=== PATIENT | female | born 1950 | race American Indian/Alaskan Native ===

== ENCOUNTER 2017-09-27 15:10 | Emergency (ER) | payer MEDICARE ==
[2017-09-27] MEDS ORDERED: Sodium Chloride 0.9% 1,000 ML IV STA (16:04)
[2017-09-27 16:07] VITALS: BMI 36.0
--- NOTE | 2017-09-27 16:12 | ED PDOC ---
Arrival/HPI - General Time Seen by Provider: 09/27/17 15:52 Historian: Patient, Spouse - History of Present Illness Narrative History of Present Illness (Text): Patient is a 67 yo female with a PMH of hypertension, breast cancer s/p left mastectomy, and questionable GERD and dementia on Aricept, presents to the Emergency department with complaints of nausea, vomiting, and abdominal pain for about one hour. HPI is limited by memory impairment. Patient had a normal dinner last night and breakfast this morning without complaints. She did not eat lunch. There was a sudden onset of abdominal pain prior to 2 episodes of clear vomitus without food or blood. She did not take anything for her symptoms. Denies sick contacts and recent travel. Associated symptoms include dizziness and chills. Denies diarrhea, constipation, back pain, chest pain, shortness of breath, headache, blurry vision. Patient is noncompliant with her blood pressure medications. 09/27/17 16:12 Time/Duration: 1 hour Symptom Onset: Sudden Symptom Course: Unchanged Activities at Onset: Rest Past Medical History - Provider Review Nursing Documentation Reviewed: Yes - Infectious Disease Hx of Infectious Diseases: None - Tetanus Immunization Tetanus Immunization: Unknown - Cardiac Hx Hypertension: Yes - Pulmonary Hx Asthma: Yes Hx Pneumonia: Yes (when pt was in her 30's) - Hematological/Oncological Hx Cancer: Yes (left breast mastectomy 2 yrs ago) Hx Chemotherapy: Yes (finished 2011) - Musculoskeletal/Rheumatological Hx Falls: No - Psychiatric Hx Substance Use: No - Surgical History Hx Hysterectomy: Yes Hx Orthopedic Surgery: Yes (r ankle fx) - Suicidal Assessment Feels Threatened In Home Enviroment: No Family/Social History - Physician Review Nursing Documentation Reviewed: Yes Family/Social History: No Known Family HX Smoking Status: Never Smoked Hx Alcohol Use: No Hx Substance Use: No Hx Substance Use Treatment: No Allergies/Home Meds Allergies/Adverse Reactions: Allergies Penicillins Allergy (Verified 09/27/17 16:07) RASH Home Medications: Home Meds Medication Instructions Recorded Confirmed Donepezil [Aricept] 10 mg PO DAILY 09/27/17 09/27/17 Review of Systems - Physician Review All systems were reviewed & negative as marked: Yes - Review of Systems Systems not reviewed;Unavailable: Dementia Constitutional: Normal Eyes: absent: Vision Changes ENT: Normal Respiratory: absent: SOB, Cough Cardiovascular: absent: Chest Pain Gastrointestinal: Abdominal Pain, Nausea, Vomiting. absent: Constipation, Diarrhea Genitourinary Female: Normal Musculoskeletal: Normal Skin: Normal Neurological: Dizziness. absent: Headache Endocrine: Normal Hemo/Lymphatic: Normal Psychiatric: Normal Physical Exam Vital Signs Temp Pulse Resp BP Pulse Ox 09/27/17 21:12 98.9 F 63 18 155/80 H 100 09/27/17 19:53 58 L 18 174/100 H 100 09/27/17 18:28 54 L 18 183/95 H 100 09/27/17 16:09 98.5 F 60 20 176/94 H 99 Temperature: Afebrile Blood Pressure: Hypertensive Appearance: Positive for: Uncomfortable Pain Distress: Mild - Systems Exam Head: Present: Atraumatic, Normocephalic Pupils: Present: PERRL Extroacular Muscles: Present: EOMI Conjunctiva: Present: Normal Mouth: Present: Moist Mucous Membranes Neck: Present: Normal Range of Motion Respiratory/Chest: Present: Clear to Auscultation, Good Air Exchange. No: Respiratory Distress, Accessory Muscle Use Cardiovascular: Present: Regular Rate and Rhythm, Normal S1, S2. No: Murmurs Abdomen: Present: Normal Bowel Sounds, Other (periumbilical ttp> ruq ttp , hyperechoic bs ). No: Tenderness, Distention, Peritoneal Signs Genitourinary/Pelvic Exam: Present: Other (deferred) Back: Present: Normal Inspection Upper Extremity: Present: Normal Inspection. No: Cyanosis, Edema Lower Extremity: Present: Normal Inspection. No: Edema Neurological: Present: GCS=15, CN II-XII Intact, Speech Normal, Motor Func Grossly Intact, Normal Sensory Function, Normal Cerebellar Funct, Norm Deep Tendon Reflexes, Gait Normal, Normal 2Pt Descrimination Skin: Present: Warm, Dry, Normal Color. No: Rashes Psychiatric: Present: Alert, Oriented x 3, Normal Insight, Normal Concentration Medical Decision Making ED Course and Treatment: 67 year old woman p/w n/v/periumbilical discomfort at lunch. risk stratify w/ labs/ ct a/p po and iv contrast 09/27/17 19:39 09/27/17 19:[address] Campos at the end of my shift to f/u ct a/p. - Lab Interpretations Lab Results: 09/27/17 16:30 09/27/17 16:30 Lab Results 09/27/17 21:48: Urine Color Colorless, Urine Appearance Clear, Urine pH 6.5, Ur Specific [place] <= 1.005, Urine Protein Negative, Urine Glucose (UA) Negative, Urine Ketones 15 H, Urine Blood Negative, Urine Nitrate Negative, Urine Bilirubin Negative, Urine Urobilinogen 0.2, Ur Leukocyte Esterase Negative 09/27/17 16:30: Sodium 143, Potassium 3.3 L, Chloride 104, Carbon Dioxide 28, Anion Gap 15, BUN 9, Creatinine 0.8, Est GFR ( Amer) > 60, Est GFR (Non- Af Amer) > 60, Random Glucose 110, Calcium 10.0, Total Bilirubin 0.4, AST 27, ALT 26, Alkaline Phosphatase 89, Lactate Dehydrogenase 537, Total Creatine Kinase 248 H, CK-MB (CK-2) 2.4, CK-MB (CK-2) % Cancelled, Troponin I < 0.01, Total Protein 7.4, Albumin 4.1, Globulin 3.3, Albumin/Globulin Ratio 1.2, Amylase 54, Lipase 71 09/27/17 16:30: PT 11.8, INR 1.03, APTT 30.9 09/27/17 16:30: WBC 6.1, RBC 5.12, Hgb 14.1, Hct 41.9, MCV 81.8, MCH 27.5, MCHC 33.7, RDW 15.0 H, Plt Count 288, MPV 9.8, Gran % 69.1 H, Lymph % (Auto) 26.3, [place] % (Auto) 3.8, Eos % (Auto) 0.5 L, Baso % (Auto) 0.3, Gran # 4.18, Lymph # ( Auto) 1.6, [place] # (Auto) 0.2, Eos # (Auto) 0.0, Baso # (Auto) 0.02 - RAD Interpretation Radiology Orders: 09/27/17 15:58 ABD PELVIS PO & IV CONTRAST [CT] Stat ABD 2 VIEWS (FLAT/UP OR DECUB) [RAD] Stat 09/27/17 16:02 CHEST ONE VIEW [RAD] Stat - Medication Orders Current Medication Orders: Discontinued Medications Famotidine (Pepcid) 20 mg IVP STAT STA Stop: 09/27/17 15:59 Last Admin: 09/27/17 16:21 Dose: 20 mg IVP Administration Document 09/27/17 16:21 OCS (Rec: 09/27/17 16:21 [id number] Charges for Administration # of IVP Administrations 1 Sodium Chloride (Sodium Chloride 0.9%) 1,000 mls @ 999 mls/hr IV .Q1H1M STA Stop: 09/27/17 17:04 Last Admin: 09/27/17 16:20 Dose: 999 mls/hr eMAR Start Stop Document 09/27/17 16:20 OCS (Rec: 09/27/17 16:21 [id number] Intravenous Solution Start Date 09/27/17 Start Time 16:21 End Date 09/27/17 End time 17:22 Total Infusion Time 61 Ondansetron HCl (Zofran Inj) 4 mg IVP STAT STA Stop: 09/27/17 15:59 Last Admin: 09/27/17 16:21 Dose: 4 mg IVP Administration Document 09/27/17 16:21 OCS (Rec: 09/27/17 16:21 [id number] Charges for Administration # of IVP Administrations 1 Disposition/Present on Arrival - Present on Arrival Any Indicators Present on Arrival: No History of DVT/PE: No History of Uncontrolled Diabetes: No Urinary Catheter: No History of Decub. Ulcer: No History Surgical Site Infection Following: None - Disposition Have Diagnosis and Disposition been Completed?: Yes Diagnosis: Abdominal pain, Vomiting Disposition: HOME/ ROUTINE Disposition Time: 00:15 Patient Plan: Discharge Condition: GOOD Discharge Instructions (ExitCare): Acute Abdomen (Belly Pain), Adult (DC), Nausea and Vomiting, Adult Prescriptions: Ondansetron [Zofran Odt] 8 mg PO TID PRN #10 odt PRN Reason: Nausea/Vomiting Referrals: Alison Garcia MD [Primary Care Provider] - Follow up with primary Forms: [employer] (Indonesian)
[2017-09-27] MEDS ORDERED: Iohexol 240 (50 ml) ONE (16:25)
[2017-09-27 16:41] LABS: BASO # 0.02 K/mm3 (0.0-2.0); BASO % 0.3 % (0.0-3.0); EOS % 0.5 % (1.5-5.0); GRAN # 4.18 (1.4-6.5); GRAN % 69.1 % (50.0-68.0); HEMOGLOBIN 14.1 g/dL (12.0-16.0); LYMPH # 1.6 (1.2-3.4); LYMPH % 26.3 % (22.0-35.0); MEAN CELL VOLUME 81.8 fl (80.0-105.0); MEAN CORPUSCULAR HEMOGLOBIN 27.5 pg (25.0-35.0); MEAN CORPUSCULAR HGB CONC 33.7 g/dl (31.0-37.0); MEAN PLATELET VOLUME 9.8 fl (7.0-11.0); MONO # 0.2 (0.1-0.6); MONO % 3.8 % (1.0-6.0); RBC 5.12 10^6/uL (3.5-6.1); WHITE BLOOD COUNT 6.1 10^3/ul (4.5-11.0)
[2017-09-27 16:48] LABS: INR 1.03 (0.93-1.08); PARTIAL THROMBOPLASTIN TIME 30.9 Seconds (25.1-36.5); PROTHROMBIN TIME 11.8 SECONDS (9.4-12.5)
[2017-09-27 16:53] LABS: ALB/GLOB RATIO 1.2 (1.1-1.8); ALBUMIN 4.1 g/dL (3.0-4.8); ALT/SGPT 26 U/L (7-56); AMYLASE 54 U/L (35-125); AST/SGOT 27 U/L (14-36); BLOOD UREA NITROGEN 9 mg/dL (7-21); GFR AFRICAN-AMERICAN > 60; GFR NON-AFRICAN AMERICAN > 60; LIPASE 71 U/L (23-300)
[2017-09-27 17:04] LABS: TROPONIN I < 0.01 ng/mL
[2017-09-27 17:10] LABS: CK-MB 2.4 ng/mL (0.0-3.6)
[2017-09-27] MEDS ORDERED: Iohexol 350 MG/100 ML VIAL ONE (18:24)
[2017-09-27 18:31] VITALS: RESP 18; O2SAT 100
--- NOTE | 2017-09-27 19:21 | CT ---
EXAM: CT Abdomen and Pelvis With Intravenous Contrast CLINICAL HISTORY: 67 years old, female; Pain; Abdominal pain; Acute; Additional info: Peiumbilical pain TECHNIQUE: Axial computed tomography images of the abdomen and pelvis with intravenous contrast. All CT scans at this facility use one or more dose reduction techniques, viz.: automated exposure control; ma/kV adjustment per patient size (including targeted exams where dose is matched to indication; i.e. head); or iterative reconstruction technique. Coronal and sagittal reformatted images were created and reviewed. CONTRAST: 100 mL of omni 350 administered intravenously. COMPARISON: No relevant prior studies available. FINDINGS: Lung bases: Unremarkable. No mass. No consolidation. Heart: Mild cardiomegaly. ABDOMEN: Liver: Unremarkable. No mass. Gallbladder and bile ducts: Unremarkable. No calcified stones. No ductal dilation. Pancreas: Unremarkable. No mass. No ductal dilation. Spleen: Unremarkable. No splenomegaly. Adrenals: Unremarkable. No mass. Kidneys and ureters: Unremarkable. No solid mass. No hydronephrosis. Stomach and bowel: Unremarkable. No obstruction. Appendix: No findings to suggest acute appendicitis. PELVIS: Bladder: Unremarkable. No mass. Reproductive: Hysterectomy. ABDOMEN and PELVIS: Intraperitoneal space: Unremarkable. No free air. No significant fluid collection. Bones/joints: Lumbar spinal degenerative changes. No acute fracture. No dislocation. Soft tissues: Unremarkable. Vasculature: Atherosclerotic vascular disease. No abdominal aortic aneurysm. Lymph nodes: Unremarkable. No enlarged lymph nodes. IMPRESSION: 1. No evidence of bowel obstruction. 2. No findings to suggest acute appendicitis. 3. Remainder of findings as above.
--- NOTE | 2017-09-27 21:13 | ED PDOC ---
Physical Exam Vital Signs Temp Pulse Resp BP Pulse Ox 09/27/17 21:12 98.9 F 63 18 155/80 H 100 09/27/17 19:53 58 L 18 174/100 H 100 09/27/17 18:28 54 L 18 183/95 H 100 09/27/17 16:09 98.5 F 60 20 176/94 H 99 Medical Decision Making ED Course and Treatment: 09/27/17 19:00 Case endorsed to me by Dr. Reyes, pending CT Abdomen and Pelvis, re-assessment, and disposition. 09/27/17 19:25 CT Abdomen and Pelvis shows: Lung bases: Unremarkable. No mass. No consolidation. Heart: Mild cardiomegaly. ABDOMEN: Liver: Unremarkable. No mass. Gallbladder and bile ducts: Unremarkable. No calcified stones. No ductal dilation. Pancreas: Unremarkable. No mass. No ductal dilation. Spleen: Unremarkable. No splenomegaly. Adrenals: Unremarkable. No mass. Kidneys and ureters: Unremarkable. No solid mass. No hydronephrosis. Stomach and bowel: Unremarkable. No obstruction. Appendix: No findings to suggest acute appendicitis. PELVIS: Bladder: Unremarkable. No mass. Reproductive: Hysterectomy. ABDOMEN and PELVIS: Intraperitoneal space: Unremarkable. No free air. No significant fluid collection. Bones/joints: Lumbar spinal degenerative changes. No acute fracture. No dislocation. Soft tissues: Unremarkable. Vasculature: Atherosclerotic vascular disease. No abdominal aortic aneurysm. Lymph nodes: Unremarkable. No enlarged lymph nodes. IMPRESSION: 1. No evidence of bowel obstruction. 2. No findings to suggest acute appendicitis. 3. Remainder of findings as above. 09/27/17 22:15 On re-evaluation, patient feels better and is in no acute distress. I have discussed the results and plan with the patient, who expresses understanding. Patient in agreement with plan to be discharged home. Patient is stable for discharge. Patient was instructed to follow up with physician or return if symptoms worsen or new concerning symptoms arise. - Lab Interpretations Lab Results: 09/27/17 16:30 09/27/17 16:30 Lab Results 09/27/17 21:48: Urine Color Colorless, Urine Appearance Clear, Urine pH 6.5, Ur Specific [place] <= 1.005, Urine Protein Negative, Urine Glucose (UA) Negative, Urine Ketones 15 H, Urine Blood Negative, Urine Nitrate Negative, Urine Bilirubin Negative, Urine Urobilinogen 0.2, Ur Leukocyte Esterase Negative 09/27/17 16:30: Sodium 143, Potassium 3.3 L, Chloride 104, Carbon Dioxide 28, Anion Gap 15, BUN 9, Creatinine 0.8, Est GFR ( Amer) > 60, Est GFR (Non- Af Amer) > 60, Random Glucose 110, Calcium 10.0, Total Bilirubin 0.4, AST 27, ALT 26, Alkaline Phosphatase 89, Lactate Dehydrogenase 537, Total Creatine Kinase 248 H, CK-MB (CK-2) 2.4, CK-MB (CK-2) % Cancelled, Troponin I < 0.01, Total Protein 7.4, Albumin 4.1, Globulin 3.3, Albumin/Globulin Ratio 1.2, Amylase 54, Lipase 71 09/27/17 16:30: PT 11.8, INR 1.03, APTT 30.9 09/27/17 16:30: WBC 6.1, RBC 5.12, Hgb 14.1, Hct 41.9, MCV 81.8, MCH 27.5, MCHC 33.7, RDW 15.0 H, Plt Count 288, MPV 9.8, Gran % 69.1 H, Lymph % (Auto) 26.3, [place] % (Auto) 3.8, Eos % (Auto) 0.5 L, Baso % (Auto) 0.3, Gran # 4.18, Lymph # ( Auto) 1.6, [place] # (Auto) 0.2, Eos # (Auto) 0.0, Baso # (Auto) 0.02 - RAD Interpretation Radiology Orders: 09/27/17 15:58 ABD PELVIS PO & IV CONTRAST [CT] Stat ABD 2 VIEWS (FLAT/UP OR DECUB) [RAD] Stat 09/27/17 16:02 CHEST ONE VIEW [RAD] Stat Development Scientist: Radiologist - Medication Orders Current Medication Orders: Discontinued Medications Famotidine (Pepcid) 20 mg IVP STAT STA Stop: 09/27/17 15:59 Last Admin: 09/27/17 16:21 Dose: 20 mg IVP Administration Document 09/27/17 16:21 OCS (Rec: 09/27/17 16:21 [facility]CS [id number]) Charges for Administration # of IVP Administrations 1 Sodium Chloride (Sodium Chloride 0.9%) 1,000 mls @ 999 mls/hr IV .Q1H1M STA Stop: 09/27/17 17:04 Last Admin: 09/27/17 16:20 Dose: 999 mls/hr eMAR Start Stop Document 09/27/17 16:20 OCS (Rec: 09/27/17 16:21 [facility] [id number]) Intravenous Solution Start Date 09/27/17 Start Time 16:21 End Date 09/27/17 End time 17:22 Total Infusion Time 61 Ondansetron HCl (Zofran Inj) 4 mg IVP STAT STA Stop: 09/27/17 15:59 Last Admin: 09/27/17 16:21 Dose: 4 mg IVP Administration Document 09/27/17 16:21 OCS (Rec: 09/27/17 16:21 [facility] [id number]) Charges for Administration # of IVP Administrations 1 Disposition/Present on Arrival - Present on Arrival Any Indicators Present on Arrival: No History of DVT/PE: No History of Uncontrolled Diabetes: No Urinary Catheter: No History of Decub. Ulcer: No History Surgical Site Infection Following: None - Disposition Have Diagnosis and Disposition been Completed?: Yes Diagnosis: Abdominal pain, Vomiting Disposition: HOME/ ROUTINE Disposition Time: 22:15 Condition: GOOD Discharge Instructions (ExitCare): Acute Abdomen (Belly Pain), Adult (DC), Nausea and Vomiting, Adult Prescriptions: Ondansetron [Zofran Odt] 8 mg PO TID PRN #10 odt PRN Reason: Nausea/Vomiting Referrals: Alison Garcia MD [Primary Care Provider] - Follow up with primary Forms: [employer] (Romanian)
[2017-09-27 21:16] VITALS: BP 155/80; PULSE 63; TEMP 98.9
[2017-09-27 21:52] LABS: PH,URINE 6.5 (4.7-8.0); URINE BILIRUBIN NEGATIVE (NEGATIVE); URINE BLOOD NEGATIVE (NEGATIVE); URINE GLUCOSE (UA) NEGATIVE (NEGATIVE); URINE LEUKOCYTE ESTERASE NEGATIVE Leu/uL (NEGATIVE); URINE PROTEIN NEGATIVE mg/dL (<30 mg/dL); URINE UROBILINOGEN 0.2 E.U./dL (<1 E.U./dL)
[2017-09-27 21:53] LABS: URINE APPEARANCE CLEAR (CLEAR); URINE COLOR COLORLESS (YELLOW)
--- NOTE | 2017-09-28 07:31 | CARD ---
APPROVED REPORT EKG Measurement Heart [id number] 152P30 [id number] <Conclusion> Sinus bradycardia PRWP Nonspecific T wave abnormality
--- NOTE | 2017-09-28 09:07 | RAD ---
PROCEDURE: CHEST RADIOGRAPH, 1 VIEW HISTORY: r/o subdiaphragmatic free air COMPARISON: 01/08/2013 FINDINGS: LUNGS: Clear. PLEURA: No pneumothorax or pleural fluid seen. CARDIOVASCULAR: Normal. OSSEOUS STRUCTURES: No significant abnormalities. VISUALIZED UPPER ABDOMEN: Normal. OTHER FINDINGS: None. IMPRESSION: No active disease.
--- NOTE | 2017-09-28 09:11 | RAD ---
HISTORY: r/o obstruction COMPARISON: September 27, 2017. CT abdomen and pelvis September 26, 2017. CT abdomen and pelvis FINDINGS: BOWEL: Normal. No obstruction. No free air. BONES: Normal. OTHER FINDINGS: None. IMPRESSION: No significant or acute findings to account for/ related to the clinical presentation.
== END 2017-09-27 22:15 | disposition home or self-care (01) ==
LOC: ED 15:10
DX: R10.9 Unspecified abdominal pain (principal); R11.10 Vomiting, unspecified; I10 Essential (primary) hypertension; K21.9 Gastro-esophageal reflux disease without esophagitis
CPT/HCPCS: 71045; 74019; 74177; 80053; 81003; 82150; 82550; 82553; 83615; 83690; 84484; 85025; 85610; 85730; 93005; 96361; 96374; 96375; 99284; J2405; J7040; Q9966; Q9967

== ENCOUNTER 2018-06-11 20:15 | Inpatient (IN) | payer MEDICARE ==
[2018-06-11 20:16] VITALS: BMI 36.0
--- NOTE | 2018-06-11 20:49 | ED PDOC ---
Arrival/HPI - General Time Seen by Provider: 06/11/18 20:28 Historian: Patient, Family (Daughter) - History of Present Illness Narrative History of Present Illness (Text): 06/11/18 20:39 A 68 year old female, whose past medical history includes Hypertension, CHF, breast CA, vertigo, and gout, is brought into the emergency department by daughter for a complaint of 3 day duration altered mental status and bilateral leg swelling. Patient's daughter notes that the patient has been refusing to take her medications and the swelling has been increasing over the past 3 days. The daughter states that on the first day of swelling, the patient's PMD was co ntacted, and were instructed to double the furosemide the patient takes for the leg swelling. The patient denies any pain. The patient denies any fever, chills, chest pain, shortness of breath, abdominal pain, nausea, vomiting, diarrhea, urinary symptoms, back pain, neck pain, headache, dizziness, or any other complaints. PMD: Dr. Renteria Neurologist: Dr. Gary Time/Duration: Other (3 days) Symptom Onset: Sudden Symptom Course: Unchanged Activities at Onset: Rest, Light Context: Home Past Medical History - Provider Review Nursing Documentation Reviewed: Yes - Infectious Disease Hx of Infectious Diseases: None - Tetanus Immunization Tetanus Immunization: Unknown - Cardiac Hx Hypertension: Yes - Pulmonary Hx Asthma: Yes Hx Pneumonia: Yes (when pt was in her 30's) - Neurological Hx Neurological Disorder: No - HEENT Hx HEENT Disorder: No - Renal Hx Renal Disorder: No - Endocrine/Metabolic Hx Endocrine Disorders: No - Hematological/Oncological Hx Cancer: Yes (left breast mastectomy 2 yrs ago) Hx Chemotherapy: Yes (finished 2011) - Integumentary Hx Dermatological Disorder: No - Musculoskeletal/Rheumatological Hx Falls: No - Gastrointestinal Hx Gastrointestinal Disorders: No - Genitourinary/Gynecological Hx Genitourinary Disorders: No - Psychiatric Hx Substance Use: No - Surgical History Hx Hysterectomy: Yes Hx Orthopedic Surgery: Yes (r ankle fx) - Anesthesia Hx Anesthesia: No - Suicidal Assessment Feels Threatened In Home Enviroment: No Family/Social History - Physician Review Nursing Documentation Reviewed: Yes Family/Social History: No Known Family HX Smoking Status: Never Smoked Hx Alcohol Use: No Hx Substance Use: No Hx Substance Use Treatment: No Allergies/Home Meds Allergies/Adverse Reactions: Allergies Penicillins Allergy (Verified 09/27/17 16:07) RASH Home Medications: Home Meds Medication Instructions Recorded Confirmed Donepezil [Aricept] 10 mg PO DAILY 09/27/17 09/27/17 Review of Systems - Physician Review All systems were reviewed & negative as marked: Yes - Review of Systems Constitutional: absent: Fevers Respiratory: absent: SOB, Cough Cardiovascular: absent: Chest Pain Gastrointestinal: absent: Abdominal Pain, Diarrhea, Nausea, Vomiting Genitourinary Female: absent: Urine Output Changes Musculoskeletal: absent: Back Pain, Neck Pain Neurological: absent: Headache, Dizziness Physical Exam Vital Signs Reviewed: Yes Temperature: Afebrile Blood Pressure: Hypotensive Pulse: Regular Respiratory Rate: Normal Appearance: Positive for: Well-Appearing, Non-Toxic, Comfortable Pain Distress: None Mental Status: No: Alert and Oriented X 3 (A and Ox2) - Systems Exam Head: Present: Atraumatic, Normocephalic Pupils: Present: PERRL Extroacular Muscles: Present: EOMI Conjunctiva: Present: Normal Mouth: Present: Moist Mucous Membranes Neck: Present: Normal Range of Motion Respiratory/Chest: Present: Clear to Auscultation, Good Air Exchange. No: Respiratory Distress, Accessory Muscle Use Cardiovascular: Present: Regular Rate and Rhythm, Normal S1, S2. No: Murmurs Abdomen: No: Tenderness, Distention, Peritoneal Signs Back: Present: Normal Inspection Upper Extremity: Present: Normal Inspection. No: Cyanosis, Edema Lower Extremity: Present: Edema (Bilateral 2+ edema) Neurological: Present: GCS=15, CN II-XII Intact, Speech Normal Skin: Present: Warm, Dry, Normal Color. No: Rashes Psychiatric: Present: Alert, Normal Insight, Normal Concentration. No: Oriented x 3 (Oriented x2 ) Medical Decision Making ED Course and Treatment: 06/11/18 20:49 Impression: A 68 year old female is brought into the emergency department by daughter for a complaint of 3 day duration AMS and bilateral foot swelling. On exam pt is Alert and oriented, without any unilateral weakness, slurred speech or any other FND. No cerebellar signs. No meningeal signs. Lungs CTA b/l. B/L LE edema. Likely CHF exacerbation vs UTI vs PNA. Plan: -- Head CT -- Bilateral Lower Extremity Ultrasound -- EKG -- CXR -- Labs -- Reassess and disposition Prior Visits: Notes and results from previous visits were reviewed. Progress Notes: EKG: Ordered, reviewed, and independently interpreted the EKG. Rate : 84 BPM Rhythm : NSR Interpretation : PVC. No STEMI 06/11/18 21:42: Bedside pulses as well as good pulses and good tone by both resident and I. Arterial duplex cancelled. No notable change in color. Color change noted by family and is chronic. 06/11/18 23:05: [place] [address]. Lasix ordered. Will replete potassium. HEAD CT IMPRESSION: 1. Age-appropriate cerebellar and cerebral atrophy. 2. Mild chronic microvascular disease. 3. No evidence of acute intracranial pathology. Electronically signed on Jun 12, 2018 12:22:47 AM EST by: Isidro Logan M.D., Certified by ADELITA, MSK, Neuroradiology 06/12/18 1963 Negative doppler appreciate consult w/ Dr. Lira covering for Dr. Renteria: to admit to Dr. Urena service. I endorsed additional pending studies including xr pt in NAD, agreeable to plan. 0133 UA unremarkable - Lab Interpretations I have reviewed the lab results: Yes - EKG Interpretation Interpreted by ED Physician: Yes Type: 12 lead EKG - Scribe Statement The provider has reviewed the documentation as recorded by the Scribe Dona Hendricks Provider Scribe Attestation: All medical record entries made by the Scribe were at my direction and personally dictated by me. I have reviewed the chart and agree that the record accurately reflects my personal performance of the history, physical exam, medical decision making, and the department course for this patient. I have also personally directed, reviewed, and agree with the discharge instructions and disposition. Disposition/Present on Arrival - Present on Arrival Any Indicators Present on Arrival: No History of DVT/PE: No History of Uncontrolled Diabetes: No Urinary Catheter: No History Surgical Site Infection Following: None - Disposition Have Diagnosis and Disposition been Completed?: Yes Diagnosis: CHF (congestive heart failure) Disposition Time: 23:19 Condition: GOOD
[2018-06-11 21:48] LABS: VENOUS BLOOD GAS PO2 57 mm/Hg (30-55); VENOUS BLOOD PH 7.38 (7.32-7.43)
[2018-06-11 21:52] LABS: BASO # 0.03 K/mm3 (0.0-2.0); BASO % 0.5 % (0.0-3.0); EOS # 0.2 (0.0-0.7); EOS % 2.5 % (1.5-5.0); GRAN # 3.7 (1.4-6.5); GRAN % 60.8 % (50.0-68.0); HEMOGLOBIN 12.8 g/dL (12.0-16.0); LYMPH # 1.9 (1.2-3.4); LYMPH % 31.9 % (22.0-35.0); MEAN CELL VOLUME 82.5 fl (80.0-105.0); MEAN CORPUSCULAR HEMOGLOBIN 27.1 pg (25.0-35.0); MEAN CORPUSCULAR HGB CONC 32.8 g/dl (31.0-37.0); MEAN PLATELET VOLUME 10.8 fl (7.0-11.0); MONO # 0.3 (0.1-0.6); MONO % 4.3 % (1.0-6.0); RBC 4.73 10^6/uL (3.5-6.1); RED CELL DISTRIBUTION WIDTH 19.1 % (11.5-14.5); WHITE BLOOD COUNT 6.1 10^3/uL (4.5-11.0)
[2018-06-11 21:55] LABS: ALT/SGPT 14 U/L (7-56); AST/SGOT 22 U/L (14-36); BLOOD UREA NITROGEN 14 mg/dL (7-21); CALCIUM 9.3 mg/dL (8.4-10.5); GFR NON-AFRICAN AMERICAN > 60
[2018-06-11 22:07] LABS: B-TYPE NATRIURETIC PEPTIDE 16100 pg/mL (0-450); TROPONIN I 0.01 ng/mL
[2018-06-11] MEDS ORDERED: Potassium Chloride 40 mEq/30 ml LIQ UD PO STA (23:04)
[2018-06-12 00:37] LABS: URINE BILIRUBIN NEGATIVE (NEGATIVE); URINE BLOOD NEGATIVE (NEGATIVE); URINE GLUCOSE (UA) NEGATIVE (NEGATIVE); URINE LEUKOCYTE ESTERASE SMALL Leu/uL (NEGATIVE); URINE PROTEIN TRACE mg/dL (<30 mg/dL)
[2018-06-12 00:38] LABS: URINE APPEARANCE SL CLOUDY (CLEAR); URINE COLOR YELLOW (YELLOW)
[2018-06-12 01:00] LABS: URINE RBC 0 - 2 /hpf (0-2)
[2018-06-12 01:01] LABS: URINE BACTERIA RARE /hpf
[2018-06-12 01:41] LABS: VENOUS BLOOD GAS BASE EXCESS 3.6 mmol/L (0.0-2.0); VENOUS BLOOD GAS PO2 44 mm/Hg (30-55); VENOUS BLOOD PH 7.37 (7.32-7.43)
--- NOTE | 2018-06-12 08:58 | RAD ---
Date of service: 06/12/2018 HISTORY: BNP 16k COMPARISON: 09/27/2017 FINDINGS: LUNGS: No active pulmonary disease. PLEURA: No significant pleural effusion identified, no pneumothorax apparent. CARDIOVASCULAR: No aortic atherosclerotic calcification present. Mild cardiomegaly no pulmonary vascular congestion. OSSEOUS STRUCTURES: No significant abnormalities. VISUALIZED UPPER ABDOMEN: Normal. OTHER FINDINGS: None. IMPRESSION: No active disease.
--- NOTE | 2018-06-12 09:09 | CT ---
Date of service: 06/11/2018 PROCEDURE: CT HEAD WITHOUT CONTRAST. HISTORY: ams COMPARISON: None available. TECHNIQUE: Axial computed tomography images were obtained through the head/brain without intravenous contrast. Radiation dose: Total exam DLP = 1004.52 mGy-cm. This CT exam was performed using one or more of the following dose reduction techniques: Automated exposure control, adjustment of the mA and/or kV according to patient size, and/or use of iterative reconstruction technique. FINDINGS: HEMORRHAGE: No intracranial hemorrhage. BRAIN: No mass effect or edema. Mild atrophy and chronic microvascular ischemic changes. VENTRICLES: Unremarkable. No hydrocephalus. CALVARIUM: Unremarkable. PARANASAL SINUSES: Unremarkable as visualized. No significant inflammatory changes. MASTOID AIR CELLS: Unremarkable as visualized. No inflammatory changes. OTHER FINDINGS: None. IMPRESSION: No intracranial hemorrhage.
--- NOTE | 2018-06-12 09:24 | CARD ---
APPROVED REPORT Date of service: 06/11/2018 EKG Measurement Heart [id number] HI 140P54 [id number] <Conclusion> Sinus rhythm with premature atrial complexes with aberrant conduction Possible Left atrial enlargement Left anterior fascicular block Anteroseptal infarct, not seen on ECG 09/27/17 NSSTW changes
--- NOTE | 2018-06-12 14:37 | CP.PCM.PCO ---
Physician Communication Note - Physician Communication Note Physician Communication Note: CTA neck/head as per neuro/MRI, PT eval pending
--- NOTE | 2018-06-12 14:40 | CP.PCM.PCO ---
Physician Communication Note - Physician Communication Note Physician Communication Note: PT eval pending
--- NOTE | 2018-06-12 14:57 | CON ---
NEUROLOGY CONSULTATION DATE: 06/12/2018 CHIEF COMPLAINT: Confusion. HISTORY OF PRESENT ILLNESS: This is a 68-year-old woman with history of hypertension, CHF, breast cancer, vertigo, gout, who was brought in to by her daughter for complaints of 3-day duration of confusion and bilateral leg swelling. Th patient's daughter has noticed that the patient has been refusing to take her medications, swelling has increased for the past 3 days. She was on furosemide for swelling. Currently, she is confused. She thinks people are out there seeing her. She is in a delirious state. She mentions that her house is outside this door. No focal weakness and she has bilateral lower extremity swelling. She is on Aricept for underlying cognitive impairment. She is mildly delirious. She had most likely had behavioral disturbance, we will recommend psychiatric evaluation. PAST MEDICAL HISTORY: History of breast cancer status post left breast mastectomy two years ago, status post chemotherapy finished in 2011, hypertension, cognitive impairment and vertigo. FAMILY HISTORY: Noncontributory. REVIEW OF SYSTEMS: A 14-point review of systems is negative except as per the HPI. ALLERGIES: PENICILLIN. MEDICATIONS: Reviewed by nurse reconciliation sheet. LABORATORY DATA: BNP is 16,100. Sodium is 144, potassium 3.1, chloride 107, carbon dioxide 29, BUN of 14, creatinine 0.7 and glucose of 185. PHYSICAL EXAMINATION: VITAL SIGNS: Temperature of 98.1, pulse rate of 74, blood pressure 108/75, respiratory rate of 20 and oxygen saturation 99% on room air. GENERAL: The patient is sitting up in bed, in no acute distress. HEENT: Atraumatic and normocephalic. PERRLA. Extraocular muscles intact. NECK: Supple. No JVD. No adenopathy noted. LUNGS: Clear to auscultation. No adventitious sounds. HEART: S1 and S2. Normal rate and rhythm. No murmurs, rubs or gallops. ABDOMEN: Soft, nontender and nondistended. Bowel sounds are present. EXTREMITIES: No clubbing. No cyanosis. Peripheral pulses 2+ felt bilaterally. Has 1+ pitting edema to lower extremities. NEUROLOGIC: The patient is alert and oriented to person, not much to month, place or year. Recall time is 0/3. Poor attention span. Tangential thought process, confused . Speech is fluent without any errors. Cranial nerves II through XII are intact. Motor: Moves all extremities equally. Toes downgoing bilaterally. Sensory: Decreased light touch and pinprick up to the calves bilaterally. Decreased vibration of the toes. DTRs are 2+ throughout and 1 at both knees and ankles. Coordination: [id number] is intact. No dysmetria noted. Gait is deferred for now. IMPRESSION: This is a 68-year-old woman with history of breast cancer, status post left mastectomy two years ago, status post chemotherapy finished in 2011, hypertension, congestive heart failure, vertigo, gout, who came in for three days of confusion, bilateral leg swelling, has not been on furosemide for past few days, she did not take her medications, as is confused in terms of mild hallucinating. She definitely has cognitive impairment with mild behavioral disturbance and she is in the state of delirium. RECOMMENDATIONS: We would recommend; 1. Thiamine 100 mg p.o. daily. 2. Psychiatric evaluation and could consider Seroquel 25 mg p.o. at bedtime by Psychiatry. 3. CAT scan of head is negative, therefore no further neuro imaging required since there is no evidence of any mets. 4. throughout the day, avoid nighttime interruptions and delirium precautions. Thank you for this consult. Tony Gary MD
[2018-06-12 15:41] LABS: BLOOD UREA NITROGEN 16 mg/dL (7-21); CALCIUM 8.7 mg/dL (8.4-10.5); GFR NON-AFRICAN AMERICAN > 60; URIC ACID 8.7 mg/dL (2.5-6.2)
--- NOTE | 2018-06-12 16:11 | US ---
PROCEDURE: Bilateral carotid artery duplex ultrasound HISTORY: Carotid stenosis PHYSICIAN(S): Van Anthony MD. TECHNIQUE: Duplex sonography and color-flow Doppler were used to evaluate the carotid bifurcations and limited segments of the vertebral arteries bilaterally. FINDINGS: There is mild smooth heterogeneous plaque noted at the carotid bifurcations bilaterally. The peak systolic velocity in the proximal right internal carotid artery is 63 cm/sec. This corresponds to a 20 to 39% proximal right ICA stenosis. Normal systolic velocities are noted in the proximal right external carotid artery. There is antegrade flow in the right vertebral artery. The peak systolic velocity in the proximal left internal carotid artery is 54 cm/sec. This corresponds to a 20 to 39% proximal left ICA stenosis. Normal systolic velocities are noted in the proximal left external carotid artery. There is antegrade flow in the left vertebral artery. IMPRESSION: 1. Bilateral 20-39% proximal ICA stenoses. 2. Antegrade flow in both vertebral arteries.
--- NOTE | 2018-06-12 16:21 | US ---
HISTORY: Leg pain and swelling. Evaluate for DVT PHYSICIAN(S): Van Anthony MD. TECHNIQUE: Duplex sonography and color-flow Doppler with graded compression were used to evaluate the deep venous systems of both lower extremities. FINDINGS: The visualized deep venous systems of both lower extremities are sonographically normal and compressible. Normal wave forms and augmentation are seen. There is no sonographic evidence for deep venous thrombosis in the visualized segments of both lower extremities. IMPRESSION: No sonographic evidence for deep venous thrombosis in the visualized segments of both lower extremities.
--- NOTE | 2018-06-12 21:53 | CON ---
DATE: 06/12/2018 CARDIOLOGY CONSULTATION REASON FOR CONSULTATION: Cardiac evaluation, ruled out congestive heart failure, leg swelling. BRIEF CLINICAL HISTORY: A 68-year-old female with a past medical history significant for hypertension, congestive heart failure, breast CA, vertigo and gout, documented coronary artery disease came in with complaints of progressive worsening leg swelling. Denies any chest pain. Denies any shortness of breath. Denies any palpitation. PAST MEDICAL HISTORY: Significant for hypertension, obesity, asthma, breast CA and asthma since childhood. SOCIAL HISTORY: Denies any history of smoking. Quit many years ago. PAST SURGICAL HISTORY: Significant for mastectomy. ALLERGIES: TO PENICILLIN. CURRENT MEDICATIONS: The patient is taking at home lisinopril 10 mg daily and Aricept 10 mg daily. REVIEW OF SYSTEMS: As per HPI. PHYSICAL EXAMINATION: VITAL SIGNS: Temperature afebrile. Heart rate 74, blood pressure 108/75. HEENT: PERRLA intact. NECK: Supple. No carotid bruit or thyromegaly. CHEST: Clear to auscultation. HEART: S1, S2 regular. ABDOMEN: Soft. EXTREMITIES: Clubbing and cyanosis negative. LABORATORY DATA: WBC , hemoglobin 12.8, hematocrit 39, and platelet count 272. Chemistries show sodium of 144, potassium 3.4, chloride 107, carbon dioxide 29, anion gap 14, BUN 12, and creatinine 0.7 as of yesterday. Recent cardiac workup as well the patient's last echo done on 01/09/2013, [address] [facility], read by Dr. Thapa,that shows ejection fraction of 60% to 65%. No AR. No . No significant mitral regurgitation or mitral stenosis noted. A trace tricuspid regurgitation noted. RV systolic pressure not calculated because of the trace TR. Ejection fraction reported 60% to 65%. IMPRESSION: A 68-year-old female with past medical history significant for hypertension admitted with leg swelling and shortness of breath, history of hypertension, history of breast CA. Recommended to get echo to assess LV function. Continue gentle diuretics. Supplement potassium. We will followup. Get the lipid profile, TSH, hemoglobin A1c. Further recommendation depends on hospital course. We will follow with you. Thank you Dr. Renteria in providing this opportunity in taking care of patient, Triny Pryor. Hudson Campbell MD [facility] # [id number]
--- NOTE | 2018-06-12 21:59 | HP ---
DATE OF EXAM: 06/12/2018 HISTORY OF PRESENT ILLNESS: The patient is a 68-year-old black female sitting in chair, very apprehensive and anxious, was brought to emergency room by daughter because of increasing confusion, as a baseline she is confused, but lately she has been increasingly confused. Denies any nausea or vomiting. As per family, she has not been taking her medications. No history of hemoptysis. No hematemesis. PAST MEDICAL HISTORY: Significant for hypertension and dementia. ALLERGIES: SHE IS ALLERGIC TO PENICILLIN. MEDICATIONS: At home; she is on lisinopril 10 mg daily and Aricept 10 mg daily. SOCIAL HISTORY: No history of smoking, drinking, or alcohol abuse. She lives with her daughter and grand kid. PHYSICAL EXAMINATION: GENERAL: She is awake and alert, but confused and disoriented. VITAL SIGNS: She is afebrile, pulse 74, respirations 20, and blood pressure 108/75. LUNGS: Bilateral fair airflow. No rhonchi or crackles. HEART: S1 and S2 audible. ABDOMEN: Soft and nontender. No rebound. No guarding. NEUROLOGIC: The patient is awake, alert, but confused and disoriented. LABORATORY DATA: WBC is 6.1, hemoglobin 12, hematocrit 39 and platelets 272. Chemistry; sodium 144, potassium 3.1, chloride 107, CO2 of 29, BUN 14, and creatinine 0.6. Blood sugar of 185. BNP 16,100. CT scan of the head is negative. Bilateral leg Doppler is pending. ASSESSMENT AND PLAN: Increased confusion. I ordered for carotid Doppler, I ordered for neuro evaluation and psychiatric consult by Dr. Lopez for adjustment disorder. Follow vitamin B12. Followup her electrolyte in a.m. and followup the patient in a.m. Dirk Renteria MD
[2018-06-13] MEDS ORDERED: Potassium Chloride 20 mEq ER Tab PO ONE (09:42)
--- NOTE | 2018-06-13 10:11 | CARD ---
APPROVED REPORT Date of service: 06/12/2018 EXAM: Two-dimensional and M-mode echocardiogram with Doppler and color Doppler. INDICATION Cardiomyopathy CHF 2D DIMENSIONS IVSd1.2 (0.7-1.1cm)LVDd4.5 (3.9-5.9cm) LVOT Diameter2.2 (1.8-2.4cm)PWd1.2 (0.7-1.1cm) LVDs4.1 (2.5-4.0cm)FS (%) 9.7 % LVEF (%)21.4 (>50%) M-Mode DIMENSIONS Left Atrium (MM)3.80 (2.5-4.0cm)Aortic Root3.50 (2.2-3.7cm) Aortic Cusp Exc.1.90 (1.5-2.0cm) Aortic Valve AoV Peak Kchsbqdx65.9cm/Nory Peak GR.3mmHg Mitral Valve MV E Kfufhrba498.0cm/sMV E Peak Gr.118mmHg TDI Lateral E' Peak V11.30cm/sMedial E' Peak V6.25cm/sE/Lateral E'10.4 E/Medial E'18.7 Tricuspid Valve TR Peak Gymqummv410gs/sRAP [id number] Peak Gr.62mmHg [id number] LEFT VENTRICLE The Left Ventricle is borderline dilated. There is normal left ventricular wall thickness. The systolic function is severely impaired.EF-15-20% There is global hypokinesis of the left ventricle. The left ventricular diastolic function is normal. No left ventricle thrombus noted on this study. There is no ventricular septal defect visualized. There is no left ventricular aneurysm. There is no mass noted in the left ventricle. RIGHT VENTRICLE The right ventricle is mildly to moderately dilated. There is normal right ventricular wall thickness. Systolic function is moderately reduced. ATRIA The left atrium is mildly dilated. The right atrium is mildly dilated. The interatrial septum is intact with no evidence for an atrial septal defect. AORTIC VALVE The aortic valve is thickened but opens well. There is mild aortic regurgitation. There is no aortic valvular stenosis. There is no aortic valvular vegetation. MITRAL VALVE The mitral valve is thickened but opens well. Mitral regurgitation is moderate to severe. The mitral regurgitant jet is eccentric posteriorly directed. There is no mitral valve stenosis. There is no evidence of mitral valve prolapse. TRICUSPID VALVE The tricuspid valve leaflets are thickened , but open well. There is moderate tricuspid regurgitation.RVSP-72 mmof hg. There is moderate to severe pulmonary hypertension. There is no tricuspid valve stenosis. There is no tricuspid valve prolapse or vegetation. PULMONIC VALVE The pulmonic valve is mildly thickened. There is mild pulmonic valvular regurgitation. There is no pulmonic valvular stenosis. GREAT VESSELS The aortic root is normal in size. The ascending aorta is normal in size. The pulmonary artery is normal. The IVC is dilated. PERICARDIAL EFFUSION There is small left pleural effusion. There is a trace pericardial effusion. <Conclusion> Four chamber Dsilatation , C/w CMP- EF-15-20% There is mild aortic regurgitation. Mitral regurgitation is moderate to severe. The mitral regurgitant jet is eccentric posteriorly directed. There is moderate tricuspid regurgitation.RVSP-72 mmof hg. There is moderate to severe pulmonary hypertension. There is mild pulmonic valvular regurgitation. The IVC is dilated. There is small left pleural effusion. There is a trace pericardial effusion.
[2018-06-13] MEDS: Enoxaparin 40 mg Syringe SC SCH (10:28)
[2018-06-13] MEDS: Digoxin 125 mcg (0.125 mg) Tab PO SCH (14:18)
--- NOTE | 2018-06-13 14:43 | CON ---
DATE OF CONSULTATION: 06/13/2018 HISTORY OF PRESENT ILLNESS: Shortly, the patient is a 68-year-old female with not known previous psychiatric history. The patient was brought in by her daughter for evaluation of altered mental status and bilateral leg swelling. Psych consult was called because the patient had episodes of confusion as well as some visual hallucinations. The patient was seen and examined today. The patient has her , Mert Pryor, next to her. The patient gave permission to talk to him after the interview and was willing to be interviewed in front of him. The patient presented to be confused. The patient does not know where she is. When this residential mortgage underwriter educated the patient that she is in the hospital, the patient replied "no, I am not in the hospital." The patient had difficulty to explain where she is. The patient was observed playing with head closed with a blanket and had difficulty to pull it off. The patient initially wanted to talk to this residential mortgage underwriter with blanket on her face, but agreed to remove it. Besides that, the patient seems to be in good mood, no agitation, no aggression. The patient was constantly asking her where she is. The patient's is not sure if the patient has history of mental illness as he remembered the patient never being evaluated by psychiatrist and never being admitted to the psychiatric inpatient unit. The patient never verbalized thoughts of killing herself or others. VITAL SIGNS: Stable. Temperature 97.5, pulse 72, blood pressure 108/75, respirations 26, and saturation 100. MEDICATIONS: Reviewed. The patient is on Coreg, digoxin, Aricept, Lovenox, Lasix, Zestril, Ativan 1 mg p.o. every 6 hours as needed for agitation, Seroquel and Aldactone. The patient got only one dose of Seroquel. Hematology reviewed. Blood gas reviewed. Chemistry reviewed. Potassium was low. Urinalysis: Leukocyte esterase low. Microbiology showed gram-positive cocci in the urine. Reports reviewed. I agree with Dr. Gary, neurologist, to start Seroquel, which was already initiated 12.5 mg twice a day. So far, the patient got only 1 dose. Previous history reviewed. The [facility]. MENTAL STATUS EXAM: The patient presented to be sleepy, easily arousable. Hygiene is marginal. The patient appears to be confused. The patient does not know where she is. Mood described as alright. Affect was constricted, but reactive. Mood congruent. Thought process seems to be circumstantial, tangential and confused. Thought content, the patient had some visual hallucinations, but had difficulty to express what kind of hallucinations that she has. Insight and judgment limited. Impulses are well controlled. IMPRESSION: Most likely the patient is in delirium stage. As per Dr. Gary, the patient has some mild cognitive limitations. The patient is on Aricept. This residential mortgage underwriter assumed that the patient has some signs of dementia or normal aging. PLAN: Continue current management. Continue current medications. Seroquel will be continued at 12.5. At present moment, we will not increase the dose. Delirium precautions. Physical therapy evaluation. We will follow up and advise accordingly. Please try to avoid benzodiazepines as much as possible. Thank you very much for letting me participate in the care of your patient. Jessica Avendano MD
[2018-06-13] MEDS ORDERED: Magnesium Sulfate 1 gm in D5W 1 GM/100 ML BAG IV ONE (16:07)
[2018-06-13] MEDS ORDERED: Potassium Chloride 20 mEq ER Tab PO SCH (16:15)
--- NOTE | 2018-06-13 19:14 | PN ---
DATE: 06/13/2018 SUBJECTIVE: The patient is 68-year-old, seen and examined, sitting in chair, having her lunch. Her granddaughter is by the bedside who states that she has been increasingly confused, although her baseline. She has no insight of her surrounding, time, or place, and this was more than her baseline. PHYSICAL EXAMINATION VITAL SIGNS: She is afebrile, pulse 72, respirations 20, blood pressure 108/75. LUNGS: Bilateral fair airflow. No rhonchi or crackle. HEART: S1, S2 audible. ABDOMEN: Soft, nontender. No rebound. No guarding. NEUROLOGICAL: The patient is awake, alert, oriented, communicative. LABORATORY EXAM: She has urine positive for gram-positive cocci. Blood cultures are negative. Her magnesium level is low and so is her potassium. ASSESSMENT: 1. Altered mental status. 2. History of hypertension. 3. Hypokalemia. 4. Hypomagnesemia. PLAN: I will supplement magnesium, supplement potassium. She has been started on Seroquel 12.5 every 12 hours. Continue her on lisinopril. Stress test has been scheduled for 06/14/2018. We will adjust her medication according to her response to current medication. Dirk Renteria MD
[2018-06-14 06:24] LABS: BASO # 0.03 K/mm3 (0.0-2.0); BASO % 0.8 % (0.0-3.0); EOS # 0.2 (0.0-0.7); EOS % 4.3 % (1.5-5.0); GRAN # 1.14 (1.4-6.5); GRAN % 29.1 % (50.0-68.0); LYMPH # 2.3 (1.2-3.4); LYMPH % 58.9 % (22.0-35.0); MEAN CELL VOLUME 80.6 fl (80.0-105.0); MEAN CORPUSCULAR HEMOGLOBIN 26.3 pg (25.0-35.0); MEAN CORPUSCULAR HGB CONC 32.6 g/dl (31.0-37.0); MEAN PLATELET VOLUME 10.3 fl (7.0-11.0); MONO # 0.3 (0.1-0.6); MONO % 6.9 % (1.0-6.0); RBC 4.07 10^6/uL (3.5-6.1); RED CELL DISTRIBUTION WIDTH 18.6 % (11.5-14.5); WHITE BLOOD COUNT 3.9 10^3/uL (4.5-11.0)
[2018-06-14 06:47] LABS: ALB/GLOB RATIO 0.9 (1.1-1.8); ALBUMIN 2.9 g/dL (3.0-4.8); ALT/SGPT 27 U/L (7-56); AST/SGOT 20 U/L (14-36); BLOOD UREA NITROGEN 16 mg/dL (7-21); CALCIUM 8.5 mg/dL (8.4-10.5); GFR NON-AFRICAN AMERICAN > 60; HDL CHOLESTEROL 23 mg/dL (29-60)
[2018-06-14 06:53] LABS: LDL CHOLESTEROL 122 mg/dL (0-129)
[2018-06-14 07:02] LABS: HEMOGLOBIN 10.7 g/dL (12.0-16.0)
--- NOTE | 2018-06-14 07:27 | CP.PCM.PN ---
Subjective - Date & Time of Evaluation Date of Evaluation: 06/14/18 Time of Evaluation: 06:05 - Subjective Subjective: Lying in bed, no distress, awake Reason for consultation and follow up: Cardiac evaluation of leg swelling, rule out congestive heart failure, history of hypertension ,breast cancer, vertigo and gout Seen and examined by me and Dr. Campbell Objective - Vital Signs/Intake and Output Vital Signs (last 24 hours): Temp Pulse Resp BP Pulse Ox 97.5 F L 83 20 129/95 H 98 06/13/18 16:48 06/14/18 05:42 06/13/18 16:48 06/13/18 17:35 06/13/18 16:48 Intake and Output: 06/14/18 06/14/18 06:59 18:59 Intake Total 180 Balance 180 - Medications Medications: Current Medications Carvedilol (Coreg) 3.125 mg PO BID [facility] Last Admin: 06/13/18 17:35 Dose: 3.125 mg Digoxin (Digoxin) 0.125 mg PO 1400 [facility] Last Admin: 06/13/18 14:18 Dose: 0.125 mg Donepezil HCl (Aricept) 10 mg PO DAILY [facility] Last Admin: 06/13/18 10:26 Dose: 10 mg Enoxaparin Sodium (Lovenox) 40 mg SC DAILY [facility]; Protocol Last Admin: 06/13/18 10:28 Dose: 40 mg Furosemide (Lasix) 40 mg IVP DAILY [facility] Lisinopril (Zestril) 10 mg PO DAILY [facility] Last Admin: 06/13/18 10:29 Dose: 10 mg Lorazepam (Ativan) 1 mg PO Q6H PRN; Protocol PRN Reason: Agitation Last Admin: 06/13/18 21:32 Dose: 1 mg Potassium Chloride (K-Dur 20 Meq Er Tab) 20 meq PO BRK [facility] Last Admin: 06/13/18 16:28 Dose: 20 meq Quetiapine Fumarate (Seroquel) 12.5 mg PO Q12 [facility]; Protocol Spironolactone (Aldactone) 25 mg PO DAILY [facility] - Labs Labs: 06/14/18 06:00 06/14/18 06:00 - Constitutional Appears: Non-toxic, No Acute Distress - Head Exam Head Exam: NORMAL INSPECTION, NORMOCEPHALIC - Eye Exam Eye Exam: Normal appearance Pupil Exam: NORMAL ACCOMODATION - ENT Exam ENT Exam: Mucous Membranes Moist, Normal Exam - Respiratory Exam Respiratory Exam: Decreased Breath Sounds, Clear to Ausculation Bilateral, NORMAL BREATHING PATTERN - Cardiovascular Exam Cardiovascular Exam: +S1, +S2 - GI/Abdominal Exam GI & Abdominal Exam: Soft, Normal Bowel Sounds - Extremities Exam Extremities Exam: Full ROM - Neurological Exam Neurological Exam: Alert, Awake Additional comments: confuse - Psychiatric Exam Psychiatric exam: Normal Affect, Normal Mood - Skin Skin Exam: Dry, Normal Color, Warm Assessment and Plan - Assessment and Plan (Free Text) Assessment: A 68 year old female who was brought to the ER due to complaints altered mental status and bilateral leg swelling. History of hypertension, CHF, breast CA, vertigo, and gout, asthma. Echo done and showed Four chamber dialtation consistent with cardiomyopathy, LVEF 15-20%,mild MR,moderate TR, RVSP 72 mmHg, moderate to severe pulmonary hypertension,mild PVR, dilated IVC, small pleural effusion,trace pericardial effusion. for stress test today. Plan: Denies chest pain or shortness of breath Stress test held today due to low potassium Replenished potassium, IV and oral ordered Repeat potassium level at 4pm Heart rate stable Blood pressure stable On Coreg 3.125 mg BID, Digoxin 0.125 mg daily, Lasix 40 mg daily, Kdur 20 meq daily,Aldactone 25 mg daily. Continue current medications Continue current treatment Will reschedule Stress test Will follow up Plan and treatment discussed with Dr. Campbell
[2018-06-14] MEDS ORDERED: Potassium Chloride 20 mEq ER Tab PO STA (07:38)
[2018-06-14] MEDS ORDERED: Potassium Chloride 20 mEq/15 ml LIQ UD PO SCH (08:00)
[2018-06-14] MEDS ORDERED: Potassium Chloride 40 mEq/30 ml LIQ UD PO STA ×2 (08:07→08:16)
--- NOTE | 2018-06-14 09:52 | PN ---
DATE: 06/13/2018 REASON FOR CONSULTATION: Cardiac evaluation, rule out congestive heart failure, leg swelling. SUBJECTIVE: The patient denies any chest pain, shortness of breath, or any palpitation. Lying flat in the bed. OBJECTIVE: GENERAL: Not in apparent distress. Lying flat in the bed, has been not been in distress bedside in the chair. VITAL SIGNS: Temperature afebrile. Heart rate 72, blood pressure 108/75. HEENT: PERRLA. Extraocular muscles intact. NECK: Supple. No carotid bruit or thyromegaly. CHEST: Clear to auscultation. HEART: S1, S2 regular. ABDOMEN: Soft. EXTREMITIES: Clubbing and cyanosis negative. LABORATORY DATA: Blood work: WBC 6.8, hemoglobin 12.8, hematocrit 39, and platelet count 272. Chemistry showed sodium 139, potassium 3, chloride 104, carbon dioxide 27, anion gap 11, BUN 16, and creatinine 2.7 as for yesterday. Magnesium was 1.4 yesterday. Today, the patient refused blood workup. IMPRESSION: A 68-year-old female with past medical history significant for history of breast carcinoma, hypertension, admitted with the complaint of leg swelling, also some element of mental status. RECOMMENDATION: Continue lisinopril. Continue gentle diuretics. Follow up echo to assess LV function. Carotid arterial duplex showed bilateral 20-39% proximal ICA stenosis. Bilateral lower extremity duplex scan venous shows no sonographic evidence of DVT. Repeat lab the patient refused yesterday. We will repeat tomorrow. Continue Lasix. Continue lisinopril. Continue DVT prophylaxis and repeat the lab in the morning. Follow up echo when it is done, available to read. We will put forth DVT prophylaxis from today and repeat lab in the morning including lipid profile, TSH, hemoglobin A1c. Continue gentle diuretics. Yesterday, BNP was 1610. We will change Lasix to IV daily and 40 of K-Dur also.Will Schedule stress test in am,after echo findings. Thank you, for providing us the opportunity in taking care of the patient, Triny Pryor. Hudson Campbell MD [facility] # [id number]
[2018-06-14] MEDS: Enoxaparin 40 mg Syringe SC SCH (10:32)
[2018-06-14] MEDS ORDERED: Magnesium Sulfate 2 gm/50 ml 2 GM/50 ML BAG IVPB ONE (10:36)
--- NOTE | 2018-06-14 12:36 | PN ---
DATE: 06/14/2018 SUBJECTIVE: Shortly, patient is a 68-year-old female, multiple medical issues. The patient was admitted on the medical side for evaluation of altered mental status as well as bilateral leg swelling. Psych consult was called because the patient appears to be confused and disorganized. Please see initial note for more detailed information. The patient was followed up today. The patient presented the same way confused but more alert, the patient confabulates, for example when this commercial lines underwriter asked if the patient knows where she is, the patient said "of course I know, I am right here," the patient also said that she remembers this commercial lines underwriter, but had difficulty to do described where we met. Also, the patient was making statements such as "I remember your face, but I do not remember your name," but the patient appears to be confused, also have memory issues. The patient also does not know what is the date today, dos not even know what season it is. The patient was saying that we are in summer in January [place] the [place]. The patient appears to be calm, no agitation, no aggression. OBJECTIVE: VITAL SIGNS: Stable. Temperature 97.8, pulse 78, blood pressure 119/90, respirations 20, oxygen saturation is 97. MEDICATIONS: Reviewed, Coreg, digoxin, Aricept, Lovenox, Lasix, Zestril, Ativan 1 mg p.o. every 6 hours as needed, last time was yesterday at the nighttime and Seroquel 12.5 mg every 12 hours scheduled, but it was not given to the patient. The patient got only two doses yesterday. LABORATORY DATA: Labs reviewed. Blood gas reviewed. Chemistry reviewed. Urinalysis reviewed. Mental status examination as this commercial lines underwriter described above, the patient appears to be disoriented, confused but calm. Mood described as okay. Affect was constricted but reactive. Thought process seems to be confabulating. Thought content, the patient denied any hallucinations, but as per staff, the patient had visual hallucinations before. The patient denied thoughts of harming herself or others. Denied intent or plan. Insight and judgment seems to be impaired. Impulses are well controlled. IMPRESSION: Likely, the patient is demented and delirious. PLAN: Continue current management. Continue current medications. Seroquel should be continued. Family should be involved what the patient's baseline need to be obtained. coordinator volunteer services need to be involved. Should you have any questions, give me a call back. There is no acute agitation, no aggression. Will need to discuss advanced directives and power of compliance attorney for the future references. I hope that the patient will be feeling better and this commercial lines underwriter cannot exclude that delirium will be clearing. There are no urgent issues. This commercial lines underwriter will follow up on this patient every other day. Should you have any questions, give me a call back. Jessica Avendano MD
[2018-06-14] MEDS: Magnesium Oxide 400 mg Tab UD PO SCH ×2 (13:50→17:36)
[2018-06-14] MEDS: Digoxin 125 mcg (0.125 mg) Tab PO SCH (13:51)
[2018-06-14 14:02] VITALS: PULSE 84
[2018-06-14] MEDS ORDERED: Potassium Chloride 20 mEq ER Tab PO ONE (15:00)
--- NOTE | 2018-06-14 16:03 | PN ---
DATE: 06/14/2018 This note is addition to our dictator nurse practitioner, Aisha Hylton. REASON FOR CONSULTATION AND FOLLOWUP: Cardiac evaluation, leg swelling, rule out congestive heart failure, history of hypertension, breast CA, vertigo, gout, possible dementia. HISTORY OF PRESENT ILLNESS: The patient denies any chest pain, shortness of breath, any palpitation. She is not in apparent distress. The patient had echocardiography done yesterday that revealed ejection fraction of 15%-20%, mild aortic regurgitation, [id number] mitral regurgitation, eccentrically directed moderate tricuspid regurgitation, hypertension is consistent with moderate to severe pulmonary hypertension. In view of operation schedule for a stress test today, IV Lexiscan, but chemistry shows potassium of 2.7, so stress test was held on hold, an aggressive supplement of potassium giving a 14 K-Dur now 20 mEq IV x2 doses and then at 40 mEq at 3:00 p.m. PLAN: Continue spironolactone as well and continue IV Lasix. Nurse reported, the patient had also underlying some element of dementia, so I tried to reach her to get in touch for more information. If the patient remained asymptomatic and still demented, we will treat medically. We will hold on the stress test, but aggressively supplement potassium and magnesium. We will also get mag rider as well mag, aggressively supplement potassium and magnesium. We will check the lab tomorrow and hold stress test. If the family agrees, then we will proceed; otherwise, I will treat medically because of underlying fever and dementia. The patient is asymptomatic. We will repeat SMA-7 at 4:00 p.m. and another blood workup in the morning to see the correction of the electrolytes. We will adjust the medication accordingly for cardiomyopathy. We will put spironolactone daily and Lasix daily. We will add on Coreg and JONATAN inhibitors. We will put low dose of digoxin as well. Heart failure therapy. I left the message to the , if they agree we will proceed for stress test or treat medically because of underlying dementia, and she is asymptomatic. So far no evidence of acute myocardial infarction. Troponin remains slight, but the BNP was elevated. Echo shows 4-chamber dilation consistent with cardiomyopathy with ejection fraction of 15%-20%. Thank you Dr. Renteria for providing us the opportunity in taking care of patient, Triny Pryor. Hudson Campbell MD [facility] # [id number]
[2018-06-14 16:14] LABS: BLOOD UREA NITROGEN 15 mg/dL (7-21); CALCIUM 8.8 mg/dL (8.4-10.5); GFR NON-AFRICAN AMERICAN > 60
[2018-06-14 16:53] VITALS: BP 115/82; PULSE 67; RESP 19; TEMP 97.3; O2SAT 95
--- NOTE | 2018-06-14 17:08 | PN ---
DATE: 06/14/2018 SUBJECTIVE: The patient is 68 years old, seen and examined, lying in bed, seems to be comfortable. Daughter is by the bedside. Seems to be confused and disoriented. Being prepped for stress test today. The patient was hypokalemic, so potassium is being supplemented. PHYSICAL EXAMINATION GENERAL: She is awake, alert, confused, disoriented. VITAL SIGNS: She is afebrile, pulse ___, respirations 20, blood pressure 119/90. LUNGS: Bilateral fair airflow. No rhonchi or crackle. HEART: S1, S2 audible. ABDOMEN: Soft, nontender. No rebound. No guarding. NEUROLOGICAL: The patient is awake, alert, but confused, disoriented. LABORATORY DATA: White blood count 3.9, hemoglobin 10.7, hematocrit 32.8 and platelets of 296. Chemistry; sodium 139, potassium 2.7, chloride 104, CO2 of 29, BUN 16, creatinine 0.8. Blood sugar of 85. Magnesium 1,5. Urine has coagulation negative staphylococcus. Blood cultures are negative. ASSESSMENT: 1. Altered mental status. 2. Coagulation negative staphylococcus aureus. 3. Hypertension. 4. Dementia with agitation. 5. Hypokalemia. PLAN: So the plan is, the patient's potassium will be supplemented and will start on Cipro. I discussed with daughter if stress test is negative, the patient will be discharged home tomorrow. Dirk Renteria MD
--- NOTE | 2018-06-15 08:41 | CP.PCM.PCO ---
Physician Communication Note - Physician Communication Note Physician Communication Note: pt was d/c
--- NOTE | 2018-06-16 15:02 | PQF ---
PROVIDER RESPONSE TEXT: CHF, acute on chronic secondary to systolic dysfunction HFr EF. REVIEWER QUERY TEXT: CHF Acuity and Type Congestive Heart Failure is documented in the Medical Record. Please document the type and acuity (in cludes probable or suspected) Such as: Type: -- Systolic -- Diastolic -- Combined -- Other, please specify Acuity: -- Acute -- Chronic -- Acute on chronic -- Other, please specify Also please document the underlying cause of the CHF (includes probable or suspected) The patient's Clinical Indicators include: Please verify type and acuity of CHF. Query created by: Jessica Veliz on 06/16/2018 7:04 AM Electronically signed by: Hudson Campbell 06/16/2018 2:58 PM
== END 2018-06-14 19:11 | disposition home or self-care (01) | DRG 292 ==
LOC: ED 20:15 → ERH 23:19 → 3RSO 06-12 02:15
PROVIDERS: ADMIT Internal Medicine; ATTEND Internal Medicine
DX: I11.0 Hypertensive heart disease with heart failure (principal); F03.91 Unspecified dementia, unspecified severity, with behavioral disturbance; I50.23 Acute on chronic systolic (congestive) heart failure; I42.9 Cardiomyopathy, unspecified; I27.20 Pulmonary hypertension, unspecified; I25.10 Atherosclerotic heart disease of native coronary artery without angina pectoris; E83.42 Hypomagnesemia; E87.6 Hypokalemia; I08.3 Combined rheumatic disorders of mitral, aortic and tricuspid valves; M10.9 Gout, unspecified; R44.1 Visual hallucinations; R41.89 Other symptoms and signs involving cognitive functions and awareness; R42 Dizziness and giddiness; J45.909 Unspecified asthma, uncomplicated; Z85.3 Personal history of malignant neoplasm of breast; Z90.12 Acquired absence of left breast and nipple; Z92.21 Personal history of antineoplastic chemotherapy; Z88.0 Allergy status to penicillin

== ENCOUNTER 2018-08-06 16:33 | Emergency (ER) | payer MEDICARE ==
[2018-08-06 16:33] VITALS: PULSE 84; BMI 36.0
[2018-08-06 17:55] VITALS: BP 140/99; PULSE 79; RESP 18; TEMP 98.3; O2SAT 98
--- NOTE | 2018-08-06 19:15 | ED PDOC ---
Arrival/HPI - General Chief Complaint: Lower Extremity Problem/Injury Historian: Patient - History of Present Illness Narrative History of Present Illness (Text): 08/06/18 19:12 68yo female with pmhx of CHF, Dementia LE edema, bib the daughter for complaint of left leg pain x 3days. Patient reports chronic leg pain, but the daughter states the pain has been worse the last 3days. States patient did not take any analgesic for her pain and she is not sure that she is complaint with her medications. She denies chest pain, SOB, diaphoresis, redness, calf pain, recent travel/surgery, trauma, any other complaint. Past Medical History - Provider Review Nursing Documentation Reviewed: Yes - Infectious Disease Hx of Infectious Diseases: None - Tetanus Immunization Tetanus Immunization: Unknown - Cardiac Hx Cardiac Disorders: Yes Hx Hypertension: Yes - Pulmonary Hx Respiratory Disorders: Yes Hx Asthma: Yes Hx Pneumonia: Yes - Neurological Hx Neurological Disorder: No - HEENT Hx HEENT Disorder: No - Renal Hx Renal Disorder: No - Endocrine/Metabolic Hx Endocrine Disorders: No - Hematological/Oncological Hx Blood Disorders: Yes Hx Cancer: Yes (left breast mastectomy 2 yrs ago) Hx Chemotherapy: Yes (finished 2011) - Integumentary Hx Dermatological Disorder: No - Musculoskeletal/Rheumatological Hx Musculoskeletal Disorders: No Hx Falls: No - Gastrointestinal Hx Gastrointestinal Disorders: No - Genitourinary/Gynecological Hx Genitourinary Disorders: No - Psychiatric Hx Psychophysiologic Disorder: No Hx Substance Use: No - Surgical History Hx Hysterectomy: Yes Hx Orthopedic Surgery: Yes (r ankle fx) - Anesthesia Hx Anesthesia: No - Suicidal Assessment Feels Threatened In Home Enviroment: No Family/Social History - Physician Review Nursing Documentation Reviewed: Yes Family/Social History: Unknown Family HX Smoking Status: Unknown If Ever Smoked Hx Alcohol Use: No Hx Substance Use: No Hx Substance Use Treatment: No Allergies/Home Meds Allergies/Adverse Reactions: Allergies Penicillins Allergy (Verified 08/06/18 17:22) RASH Home Medications: Home Meds Medication Instructions Recorded Confirmed RX: Aspirin [Lo-Dose Aspirin EC] 81 mg PO DAILY 08/06/18 08/06/18 RX: Haloperidol [Haldol] 0.5 mg PO QPM 08/06/18 08/06/18 RX: Lisinopril [Zestril] 20 mg PO DAILY 02/17/19 02/17/19 Review of Systems - Physician Review All systems were reviewed & negative as marked: Yes - Review of Systems Constitutional: Normal Eyes: Normal ENT: Normal Respiratory: Normal Cardiovascular: Normal Gastrointestinal: Normal Genitourinary Female: Normal Musculoskeletal: Arthralgias (Left leg pain) Skin: Normal Neurological: Normal Endocrine: Normal Hemo/Lymphatic: Normal Psychiatric: Normal Physical Exam Vital Signs Reviewed: Yes Vital Signs Temp Pulse Resp BP Pulse Ox 08/06/18 17:18 98.3 F 79 18 140/99 H 98 Temperature: Afebrile Blood Pressure: Normal Pulse: Regular Respiratory Rate: Normal Appearance: Positive for: Well-Appearing, Non-Toxic, Comfortable Pain Distress: None Mental Status: Positive for: Alert and Oriented X 3 - Systems Exam Head: Present: Atraumatic, Normocephalic Pupils: Present: PERRL Extroacular Muscles: Present: EOMI Conjunctiva: Present: Normal Mouth: Present: Moist Mucous Membranes Neck: Present: Normal Range of Motion Respiratory/Chest: Present: Clear to Auscultation, Good Air Exchange. No: Respiratory Distress, Accessory Muscle Use Cardiovascular: Present: Regular Rate and Rhythm, Normal S1, S2. No: Murmurs Abdomen: No: Tenderness, Distention, Peritoneal Signs Back: Present: Normal Inspection Upper Extremity: Present: Normal Inspection. No: Cyanosis, Edema Lower Extremity: Present: Edema (3+ left worse than right), NORMAL PULSES, Normal ROM, Tenderness (Left lower leg), Neurovascularly Intact. No: CALF TENDERNESS, Mignon's Sign, Temperature Abnormalties Neurological: Present: GCS=15, CN II-XII Intact, Speech Normal Skin: Present: Warm, Dry, Normal Color. No: Rashes Psychiatric: Present: Alert, Oriented x 3, Normal Insight, Normal Concentration Medical Decision Making ED Course and Treatment: 08/06/18 19:40 68yo female bib the daughter for left leg pain x 3days. Pt was ambulatory in ED. He notes chronic pain of same leg, but worse the past few days. Doppler US - Preliminary result was negative for DVT Result was DW both pt and the daughter. She was treated with Tramadol. Per daughter she has Lasix at home, but not complaint. she was advised to take her medications. Keep leg elevated and use compression stocking. Referred to her PMD - RAD Interpretation Radiology Orders: 08/06/18 17:35 DUPLEX LOWER EXTRM VEIN LEFT [US] Stat - Medication Orders Current Medication Orders: Discontinued Medications Tramadol HCl (Ultram) 50 mg PO STAT STA Stop: 08/06/18 19:02 Disposition/Present on Arrival - Present on Arrival Any Indicators Present on Arrival: No History of DVT/PE: No History of Uncontrolled Diabetes: No Urinary Catheter: No History of Decub. Ulcer: No History Surgical Site Infection Following: None - Disposition Have Diagnosis and Disposition been Completed?: Yes Diagnosis: Leg pain, Edema Disposition: HOME/ ROUTINE Disposition Time: 19:15 Patient Plan: Discharge Condition: STABLE Discharge Instructions (ExitCare): Dependent Edema (DC) Additional Instructions: Take your medication and keep leg elevated Use compression stocking Follow up with your Doctor Return to ED for any new complaint. Prescriptions: RX: Ibuprofen [Motrin Tab] 600 mg PO Q6 #15 tab Referrals: Kenya Dangelo MD [Medical Doctor] - Follow up with primary Forms: [employer] (Hebrew)
--- NOTE | 2018-08-07 08:29 | US ---
PROCEDURE: Left lower extremity venous US HISTORY: Leg pain and swelling. Evaluate for DVT. PHYSICIAN(S): Van Anthony MD. TECHNIQUE: Duplex sonography and color-flow Doppler with graded compression were used to evaluate the deep venous system of the left lower extremity. Exam is very limited by body habitus and FINDINGS: The visualized deep venous system of the left lower extremity is sonographically normal and compressible. Normal wave forms and augmentation are seen. There is no sonographic evidence for deep venous thrombosis in the visualized segments of the left lower extremity. IMPRESSION: 1. No sonographic evidence for deep venous thrombosis in the visualized segments of the left lower extremity. 2. Limited exam
== END 2018-08-06 19:34 | disposition home or self-care (01) ==
LOC: ED 16:33
DX: M79.605 Pain in left leg (principal); R60.9 Edema, unspecified

== ENCOUNTER 2018-08-08 11:02 | Inpatient (IN) | payer MEDICARE ==
[2018-08-08 12:22] LABS: BASO # 0.02 K/mm3 (0.0-2.0); BASO % 0.4 % (0.0-3.0); EOS # 0.1 (0.0-0.7); EOS % 2.6 % (1.5-5.0); HEMOGLOBIN 13.6 g/dL (12.0-16.0); LYMPH # 1.8 (1.2-3.4); LYMPH % 32.4 % (22.0-35.0); MEAN CELL VOLUME 87.1 fl (80.0-105.0); MEAN CORPUSCULAR HEMOGLOBIN 28.3 pg (25.0-35.0); MEAN CORPUSCULAR HGB CONC 32.5 g/dl (31.0-37.0); MEAN PLATELET VOLUME 10.1 fl (7.0-11.0); MONO # 0.3 (0.1-0.6); MONO % 6.2 % (1.0-6.0); RBC 4.81 10^6/uL (3.5-6.1); RED CELL DISTRIBUTION WIDTH 19.9 % (11.5-14.5); WHITE BLOOD COUNT 5.5 10^3/uL (4.5-11.0)
[2018-08-08 12:41] LABS: ALBUMIN 3.7 g/dL (3.0-4.8); ALT/SGPT 11 U/L (7-56); AST/SGOT 24 U/L (14-36); BLOOD UREA NITROGEN 18 mg/dL (7-21); CALCIUM 9.3 mg/dL (8.4-10.5); GFR NON-AFRICAN AMERICAN > 60
[2018-08-08 13:03] LABS: ACETAMINOPHEN < 10.0 ug/ml (10.0-20.0); SALICYLATE 2 mg/dL (2.0-20.0)
--- NOTE | 2018-08-08 13:26 | RAD ---
Date of service: 08/08/2018 HISTORY: pes eval COMPARISON: 06/12/2018 FINDINGS: LUNGS: No active pulmonary disease. PLEURA: No significant pleural effusion identified, no pneumothorax apparent. CARDIOVASCULAR: No aortic atherosclerotic calcification present. Mild to moderate cardiomegaly no pulmonary vascular congestion. OSSEOUS STRUCTURES: No significant abnormalities. VISUALIZED UPPER ABDOMEN: Normal. OTHER FINDINGS: None. IMPRESSION: No active disease.
--- NOTE | 2018-08-08 13:48 | CT ---
Date of service: 08/08/2018 PROCEDURE: CT HEAD WITHOUT CONTRAST. HISTORY: AMS/PES eval COMPARISON: 06/11/2018 TECHNIQUE: Axial computed tomography images were obtained through the head/brain without intravenous contrast. Radiation dose: Total exam DLP = 830.55 mGy-cm. This CT exam was performed using one or more of the following dose reduction techniques: Automated exposure control, adjustment of the mA and/or kV according to patient size, and/or use of iterative reconstruction technique. FINDINGS: The examination is mildly limited due to patient motion artifact. HEMORRHAGE: No intracranial hemorrhage. BRAIN: No intracranial mass. Mild atrophy consistent patient age. Mild periventricular white matter lucency consistent with chronic microvascular ischemic change. VENTRICLES: Unremarkable. No hydrocephalus. CALVARIUM: Unremarkable. PARANASAL SINUSES: Unremarkable as visualized. No significant inflammatory changes. MASTOID AIR CELLS: Unremarkable as visualized. No inflammatory changes. OTHER FINDINGS: None. IMPRESSION: No intracranial mass, hemorrhage or evidence of acute infarct. Mild age related atrophy and chronic white matter ischemic change. No change from 06/11/2018.
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
[2018-08-08 14:18] LABS: URINE BILIRUBIN NEGATIVE (NEGATIVE); URINE BLOOD NEGATIVE (NEGATIVE); URINE GLUCOSE (UA) NEGATIVE (NEGATIVE); URINE LEUKOCYTE ESTERASE SMALL Leu/uL (NEGATIVE); URINE PROTEIN NEGATIVE mg/dL (<30 mg/dL)
[2018-08-08 14:23] LABS: URINE COLOR YELLOW (YELLOW)
[2018-08-08 14:24] LABS: URINE APPEARANCE CLEAR (CLEAR)
[2018-08-08 14:26] LABS: URINE BACTERIA FEW /hpf; URINE RBC 0 - 2 /hpf (0-2)
[2018-08-08] MEDS ORDERED: Ciprofloxacin 400mg/200ml D5W 400 MG/200 ML BAG IVPB STA (14:42)
[2018-08-08 15:01] LABS: BARBITURATES, UR NEGATIVE (NEGATIVE); BENZODIAZEPINES, UR NEGATIVE (NEGATIVE); OPIATES, UR NEGATIVE (NEGATIVE); PHENCYCLIDINE, UR NEGATIVE (NEGATIVE)
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
[2018-08-08] MEDS ORDERED: Haloperidol Lactate 2 mg/ml Liquid PO SCH (18:00)
[2018-08-08] MEDS: Magnesium Oxide 400 mg Tab UD PO SCH (18:37)
--- NOTE | 2018-08-08 22:36 | CARD ---
APPROVED REPORT Date of service: 08/08/2018 EKG Measurement Heart [id number] <Conclusion> Normal sinus rhythm Possible Left atrial enlargement RSR' or QR pattern in V1 suggests right ventricular conduction delay Left anterior fascicular block Anterolateral infarct, age undetermined Abnormal ECG
[2018-08-09 01:23] VITALS: BMI 30.7
--- NOTE | 2018-08-09 07:54 | CP.PCM.CON ---
History of Present Illness - History of Present Illness History of Present Illness: Awake, alert, sitting on chair Reason for consultation: Cardiac evaluation of non ischemic cardiomyopathy, admitted for altered mental status Brief history of present illness: A 68 year old female who was brought to the ER due to altered metal status. Son was trying to help her and became combative. History of chronic systolic congestive heart failure,non-ischemic cardiomyopathy, hypertension, left breast cancer status post mastectomy with chemotherapy,vertigo,asthma, pneumonia, gout, former smoker, history of alcohol abuse,hysterectomy, right ankle fracture with surgery. Denies shortness of breath. Denies chest pain. Seen and examined by me and Dr. Campbell Review of Systems - Review of Systems All systems: reviewed and no additional remarkable complaints except Review of Systems: as per HPI Past Patient History - Infectious Disease Hx of Infectious Diseases: None - Tetanus Immunizations Tetanus Immunization: Unknown - Past Social History Smoking Status: Never Smoked - CARDIAC Hx Cardiac Disorders: Yes Hx Hypertension: Yes - PULMONARY Hx Respiratory Disorders: Yes Hx Asthma: Yes Hx Pneumonia: Yes - NEUROLOGICAL Hx Neurological Disorder: No Hx Alzheimer's Disease: Yes - HEENT Hx HEENT Problems: No - RENAL Hx Chronic Kidney Disease: No - ENDOCRINE/METABOLIC Hx Endocrine Disorders: No - HEMATOLOGICAL/ONCOLOGICAL Hx Blood Disorders: Yes Hx Cancer: Yes (left breast mastectomy 2 yrs ago) Hx Chemotherapy: Yes (finished 2011) - INTEGUMENTARY Hx Dermatological Problems: No - MUSCULOSKELETAL/RHEUMATOLOGICAL Hx Musculoskeletal Disorders: No Hx Falls: No - GASTROINTESTINAL Hx Gastrointestinal Disorders: No - GENITOURINARY/GYNECOLOGICAL Hx Genitourinary Disorders: No - PSYCHIATRIC Hx Psychophysiologic Disorder: No - SURGICAL HISTORY Hx Hysterectomy: Yes Hx Orthopedic Surgery: Yes (r ankle fx) - ANESTHESIA Hx Anesthesia: No Meds Allergies/Adverse Reactions: Allergies Allergy/AdvReac Type Severity Reaction Status Date / Time Penicillins Allergy RASH Verified 08/06/18 17:22 - Medications Medications: Current Medications Acetaminophen (Tylenol 325mg Tab) 650 mg PO Q6H PRN PRN Reason: Fever >100.4 F Carvedilol (Coreg) 3.125 mg PO BID [facility] Last Admin: 08/08/18 18:36 Dose: 3.125 mg Digoxin (Digoxin) 0.125 mg PO 1400 [facility] Donepezil HCl (Aricept) 10 mg PO DAILY [facility] Enoxaparin Sodium (Lovenox) 30 mg SC DAILY [facility]; Protocol Furosemide (Lasix) 40 mg PO DAILY [facility] Last Admin: 08/08/18 18:36 Dose: 40 mg Haloperidol Lactate (Haldol) 0.5 mg PO QPM [facility]; Protocol Last Admin: 08/08/18 18:36 Dose: 0.5 mg Lisinopril (Zestril) 20 mg PO DAILY [facility] Magnesium Oxide (Mag-Ox) 400 mg PO BID [facility] Last Admin: 08/08/18 18:37 Dose: 400 mg Pantoprazole Sodium (Protonix Ec Tab) 40 mg PO DAILY [facility] Quetiapine Fumarate (Seroquel) 12.5 mg PO Q12 [facility]; Protocol Last Admin: 08/08/18 21:26 Dose: 12.5 mg Spironolactone (Aldactone) 25 mg PO DAILY [facility] Physical Exam - Constitutional Appears: Non-toxic, No Acute Distress - Head Exam Head Exam: NORMAL INSPECTION, NORMOCEPHALIC - Eye Exam Eye Exam: Normal appearance Pupil Exam: NORMAL ACCOMODATION - ENT Exam ENT Exam: Mucous Membranes Moist - Respiratory Exam Respiratory Exam: Decreased Breath Sounds, Clear to Auscultation Bilateral, NORMAL BREATHING PATTERN - Cardiovascular Exam Cardiovascular Exam: +S1, +S2 - GI/Abdominal Exam GI & Abdominal Exam: Normal Bowel Sounds, Soft - Neurological Exam Neurological exam: Alert - Psychiatric Exam Psychiatric exam: Normal Affect, Normal Mood Additional comments: disoriented to place and time - Skin Skin Exam: Normal Color, Warm Results - Vital Signs Recent Vital Signs: Last Vital Signs Temp 97.3 F L 08/08/18 22:47 Pulse 73 08/08/18 22:47 Resp 18 08/09/18 01:05 BP 139/94 H 08/08/18 22:47 Pulse Ox 98 08/08/18 22:47 - Labs Result Diagrams: 08/08/18 11:45 08/08/18 11:45 Labs: Laboratory Results - last 24 hr 08/08/18 08/08/18 08/08/18 11:45 11:45 11:45 WBC 5.5 D RBC 4.81 Hgb 13.6 D Hct 41.9 MCV 87.1 D MCH 28.3 MCHC 32.5 RDW 19.9 H Plt Count 221 MPV 10.1 Neut % (Auto) 58.4 Lymph % (Auto) 32.4 [place] % (Auto) 6.2 H Eos % (Auto) 2.6 Baso % (Auto) 0.4 Lymph # (Auto) 1.8 [place] # (Auto) 0.3 Eos # (Auto) 0.1 Baso # (Auto) 0.02 Absolute Neuts (auto) 3.21 Sodium 142 Potassium 4.0 Chloride 109 H Carbon Dioxide 22 Anion Gap 16 BUN 18 Creatinine 0.9 Est GFR ( Amer) > 60 Est GFR (Non-Af Amer) > 60 Random Glucose 87 Calcium 9.3 Total Bilirubin 1.0 AST 24 ALT 11 Alkaline Phosphatase 84 Total Protein 7.3 Albumin 3.7 Globulin 3.7 Albumin/Globulin Ratio 1.0 L Urine Color Urine Appearance Urine pH Ur Specific [place] Urine Protein Urine Glucose (UA) Urine Ketones Urine Blood Urine Nitrate Urine Bilirubin Urine Urobilinogen Ur Leukocyte Esterase Urine RBC Urine WBC Ur Epithelial Cells Urine Bacteria Salicylates 2 Urine Opiates Screen Urine Methadone Screen Acetaminophen < 10.0 L Ur Barbiturates Screen Ur Phencyclidine Scrn Ur Amphetamines Screen U Benzodiazepines Scrn U Oth Cocaine Metabols U Cannabinoids Screen Alcohol, Quantitative 08/08/18 08/08/18 08/08/18 11:45 14:00 14:00 WBC RBC Hgb Hct MCV MCH MCHC RDW Plt Count MPV Neut % (Auto) Lymph % (Auto) [place] % (Auto) Eos % (Auto) Baso % (Auto) Lymph # (Auto) [place] # (Auto) Eos # (Auto) Baso # (Auto) Absolute Neuts (auto) Sodium Potassium Chloride Carbon Dioxide Anion Gap BUN Creatinine Est GFR ( Amer) Est GFR (Non-Af Amer) Random Glucose Calcium Total Bilirubin AST ALT Alkaline Phosphatase Total Protein Albumin Globulin Albumin/Globulin Ratio Urine Color Yellow Urine Appearance Clear Urine pH 6.0 Ur Specific [place] 1.020 Urine Protein Negative Urine Glucose (UA) Negative Urine Ketones Negative Urine Blood Negative Urine Nitrate Negative Urine Bilirubin Negative Urine Urobilinogen 1.0 H Ur Leukocyte Esterase Small H Urine RBC 0 - 2 Urine WBC 5 - 10 H Ur Epithelial Cells 4 - 5 Urine Bacteria Few Salicylates Urine Opiates Screen Negative Urine Methadone Screen Negative Acetaminophen Ur Barbiturates Screen Negative Ur Phencyclidine Scrn Negative Ur Amphetamines Screen Negative U Benzodiazepines Scrn Negative U Oth Cocaine Metabols Negative U Cannabinoids Screen Negative Alcohol, Quantitative < 10 Assessment & Plan - Assessment and Plan (Free Text) Assessment: A 68 year old female who was brought to the ER due to altered metal status. Son was trying to help her and became combative. History of chronic systolic congestive heart failure,non-ischemic cardiomyopathy, LVEF 15-20%,hypertension, left breast cancer status post mastectomy with chemotherapy,vertigo,asthma, pneumonia, gout, former smoker, history of alcohol abuse,hysterectomy, right ankle fracture with surgery. cardiac cath at [facility] [place] 04/[place], unknown result, Non compliant with medications. Denies shortness of breath. Denies chest pain. Chest X ray- no pulmonary vascular congestion. Clinically no signs of heart failure. Cardiac status stable. Admitted for urinary tract infection. started on Cipro. Previous cardiac work up at [facility] [place]: 06/12/18 ECHO done-LVEF 15-20% Four chamber dilatation mild AR, moderate to severe MR Moderate TR RVSP 72 mmHg Mild PVR, IVC dilated !08/13/17 Carotid Ultrasound Bilateral 20-39% proximal ICA stenosis Plan: Denies shortness of breath or chest pain Heart rate stable Blood pressure stable Continue antibiotics for UTI On Coreg 3.125 mg BID, Digoxin 0.125 mg daily, lovenox 30 mg daily, Lasix 40 mg daily, Lisinoril 20 mg daily, Aldactone 25 mg daily. Continue current treatment Continue current medications Lipid profile, HgbA1C, TSH level Will follow up Plan and treatment discussed with Dr. Campbell Thank you Dr. Adhikari for the opportunity of taking care of Triny Pryor - Date & Time Date: 08/09/18 Time: 06:45
[2018-08-09] MEDS: Enoxaparin 30 mg Syringe SC SCH (09:22)
[2018-08-09] MEDS: Magnesium Oxide 400 mg Tab UD PO SCH ×2 (09:23→19:48)
[2018-08-09] MEDS: Pantoprazole 40 mg EC Tab PO SCH (09:23)
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
--- NOTE | 2018-08-09 13:25 | CP.PCM.PCO ---
Physician Communication Note - Physician Communication Note Physician Communication Note: dementia with behavriol disturbance. condisder to inc seroquel to 25mg,
[2018-08-09] MEDS ORDERED: Haloperidol Lactate 2 mg/ml Liquid PO SCH ×2 (14:14→18:00)
--- NOTE | 2018-08-09 14:16 | CP.PCM.PN ---
<French Vyas - Last Filed: 08/09/18 14:11> Subjective - Date & Time of Evaluation Date of Evaluation: 08/09/18 Time of Evaluation: 14:11 - Subjective Subjective: PGY-2 medicine progress note for Dr Adhikari Overnight patient restless, agitated, ripped out iv line. This morning resting comfortably sitting on side of bed. AAOx1. Denied being in pain or discomfort. With visual hallucinations. Objective - Vital Signs/Intake and Output Vital Signs (last 24 hours): Temp Pulse Resp BP Pulse Ox 98.4 F 81 20 140/92 H 100 08/09/18 06:00 08/09/18 09:24 08/09/18 06:00 08/09/18 09:24 08/09/18 06:00 - Medications Medications: Current Medications Acetaminophen (Tylenol 325mg Tab) 650 mg PO Q6H PRN PRN Reason: Fever >100.4 F Carvedilol (Coreg) 3.125 mg PO BID [facility] Last Admin: 08/09/18 09:24 Dose: 3.125 mg Digoxin (Digoxin) 0.125 mg PO 1400 [facility] Donepezil HCl (Aricept) 10 mg PO DAILY [facility] Last Admin: 08/09/18 09:23 Dose: 10 mg Enoxaparin Sodium (Lovenox) 30 mg SC DAILY [facility]; Protocol Last Admin: 08/09/18 09:22 Dose: 30 mg Furosemide (Lasix) 40 mg PO DAILY [facility] Last Admin: 08/09/18 09:22 Dose: 40 mg Haloperidol Lactate (Haldol) 0.5 mg PO QPM [facility]; Protocol Last Admin: 08/08/18 18:36 Dose: 0.5 mg Lisinopril (Zestril) 20 mg PO DAILY [facility] Last Admin: 08/09/18 09:23 Dose: 20 mg Magnesium Oxide (Mag-Ox) 400 mg PO BID [facility] Last Admin: 08/09/18 09:23 Dose: 400 mg Pantoprazole Sodium (Protonix Ec Tab) 40 mg PO DAILY [facility] Last Admin: 08/09/18 09:23 Dose: 40 mg Quetiapine Fumarate (Seroquel) 25 mg PO Q12 [facility]; Protocol Spironolactone (Aldactone) 25 mg PO DAILY [facility] Last Admin: 08/09/18 09:23 Dose: 25 mg - Labs Labs: 08/08/18 11:45 08/08/18 11:45 - Additional Findings Additional findings: - Constitutional Appears: Well, Non-toxic, No Acute Distress, Unkempt - Head Exam Head Exam: ATRAUMATIC, NORMAL INSPECTION - Eye Exam Eye Exam: EOMI, Normal appearance, PERRL. absent: Scleral icterus - ENT Exam ENT Exam: Mucous Membranes Dry - Neck Exam Neck exam: Positive for: Normal Inspection - Respiratory Exam Respiratory Exam: Clear to Auscultation Bilateral, NORMAL BREATHING PATTERN. absent: Rales, Rhonchi, Wheezes - Cardiovascular Exam Cardiovascular Exam: REGULAR RHYTHM, +S1, +S2. absent: Tachycardia, JVD - GI/Abdominal Exam GI & Abdominal Exam: Normal Bowel Sounds, Soft. absent: Tenderness - Extremities Exam Extremities exam: Positive for: full ROM, normal capillary refill, pedal edema, pedal pulses present. Negative for: calf tenderness - Neurological Exam Neurological exam: Alert, Altered Additional comments: AAOx2 - Psychiatric Exam Psychiatric exam: Normal Affect Additional comments: disorganized thought process, confabulating, calm, no hallucinations - Skin Skin Exam: Dry, Intact, Normal Color, Warm Assessment and Plan - Assessment and Plan (Free Text) Plan: Mrs Pryor is a 68 year old female with a PMHx of systolic CHF, non-ischemic cardiomyopathy, HTN, breast cancer s/p breast mastectomy 2015 and s/p chemo 2011, vertigo, gout, cognitive impairment, medication non-compliance, who was brought in by family for altered mental status: #Altered Mental Status -likely 2/2 to dementia with psychosis; admission in 05/2018 for similar presentation and as per family patient's behavior has remained the same; r/o infectious causes; unlikely delirium -non-compliance with home meds -continue home meds aricept 10mg po qd, increased haloperidol to 1mg po qpm (previously 0.5mg), increased seroquel to 25mg po bid (previously 12.5mg po bid) -UA positive for 5-10 wbc's, f/u blood cx, f/u urine cx, cxr no active disease, drug screen negative -consulted psychiatrist, Dr Lopez -consulted neurologist, Dr Gary * recommended to increase seroquel dose -CT head w/o contrast: * No intracranial mass, hemorrhage or evidence of acute infarct. Mild age related atrophy and chronic white matter ischemic change. No change from 06/11/2018. #Systolic CHF #Non-ischemic Cardiomyopathy -not currently in acute heart failure -echo 05/2018 showed 4 chamber dilation with EF 15-20%, moderate to severe pulmonary HTN (see full report) -ekg showed normal rate and nsr without t wave or st changes; possible left atrial enlargement and right ventricle conductions delay; left axis deviation -patient follows-up with neonatal critical care nurse from [facility] -recent cardiac cath in 02/2018 at [facility] [place] showed non-obstructive coronary artery disease with low EF -non-compliance with home meds -continue home meds coreg 3.125mg po bid, digoxin 0.125mg po qd, lasix 40mg po qd, lisinopril 20mg po qd, spiranolactone 25mg po qd -strict Is/Os, daily weight, head of bed at 30 degrees -consult cardiology, Dr Campbell #HTN -BP currently well controlled -continue home meds coreg 3.125mg po bid, lasix 40mg po qd, lisinopril 20mg po qd, spiranolactone 25mg po qd #PPX -scd's, lovenox 30mg sc qd -protonix 40mg po qd -heart healthy diet Case discussed with Dr Adhikari <Fortino Adhikari S - Last Filed: 08/09/18 19:43> Objective - Vital Signs/Intake and Output Vital Signs (last 24 hours): Temp Pulse Resp BP Pulse Ox 97.8 F 97 H 18 135/98 H 98 08/09/18 14:00 08/09/18 14:00 08/09/18 14:00 08/09/18 14:00 08/09/18 14:00 - Medications Medications: Current Medications Acetaminophen (Tylenol 325mg Tab) 650 mg PO Q6H PRN PRN Reason: Fever >100.4 F Carvedilol (Coreg) 3.125 mg PO BID [facility] Last Admin: 08/09/18 09:24 Dose: 3.125 mg Digoxin (Digoxin) 0.125 mg PO 1400 [facility] Last Admin: 08/09/18 15:10 Dose: 0.125 mg Donepezil HCl (Aricept) 10 mg PO DAILY [facility] Last Admin: 08/09/18 09:23 Dose: 10 mg Enoxaparin Sodium (Lovenox) 30 mg SC DAILY [facility]; Protocol Last Admin: 08/09/18 09:22 Dose: 30 mg Furosemide (Lasix) 40 mg PO DAILY [facility] Last Admin: 08/09/18 09:22 Dose: 40 mg Lisinopril (Zestril) 20 mg PO DAILY [facility] Last Admin: 08/09/18 09:23 Dose: 20 mg Magnesium Oxide (Mag-Ox) 400 mg PO BID [facility] Last Admin: 08/09/18 09:23 Dose: 400 mg Pantoprazole Sodium (Protonix Ec Tab) 40 mg PO DAILY [facility] Last Admin: 08/09/18 09:23 Dose: 40 mg Quetiapine Fumarate (Seroquel) 25 mg PO Q12 [facility]; Protocol Spironolactone (Aldactone) 25 mg PO DAILY [facility] Last Admin: 08/09/18 09:23 Dose: 25 mg - Labs Labs: 08/08/18 11:45 08/08/18 11:45 Assessment and Plan - Assessment and Plan (Free Text) Plan: Please see the H and P with my notes. Pt's initial evaluation was today. I did review the notes of the medical record administrator and I agree with it. I have seen the pt and examined her.
[2018-08-09] MEDS: Digoxin 125 mcg (0.125 mg) Tab PO SCH (15:10)
--- NOTE | 2018-08-09 17:44 | CON ---
DATE: 08/09/2018 HISTORY OF PRESENT ILLNESS: This is a 68-year-old black female with past medical history of congestive heart failure, cardiomyopathy, hypertension, left breast CA status post mastectomy, and the patient with vertigo, asthma, pneumonia, gout, former smoker, history of alcohol abuse, hysterectomy, status post right ankle fracture with surgery, cardiac cath at [facility], came here with altered mental status and called to evaluate the patient. PAST MEDICAL HISTORY: As above. SOCIAL HISTORY: Smokes and drink. PHYSICAL EXAMINATION HEENT: Normocephalic, atraumatic. NECK: Supple. NEUROLOGIC: Awake, oriented to self, and confused. Cranial nerves II through XII are tested. Pupils reactive. Spontaneous movement of extremities noted. Deep tendon reflexes 1+. Plantars downgoing. Sensory appears intact. Cerebellar gait deferred. IMPRESSION AND PLAN: Confused mental state, possibly metabolic encephalopathy. Continue present management. We will follow up. Ronnell Gary MD
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
--- NOTE | 2018-08-10 06:52 | CP.PCM.PN ---
Subjective - Date & Time of Evaluation Date of Evaluation: 08/10/18 Time of Evaluation: 06:30 - Subjective Subjective: Lying in bed, Awake, alert, feels cold Reason for consultation and follow up: Cardiac evaluation of non ischemic cardiomyopathy, admitted for altered mental status,History of chronic systolic congestive heart failure,non-ischemic cardiomyopathy, hypertension, Seen and examined by me and Dr. Campbell Objective - Vital Signs/Intake and Output Vital Signs (last 24 hours): Temp Pulse Resp BP Pulse Ox 98.4 F 70 20 144/80 97 08/09/18 22:52 08/09/18 22:52 08/09/18 22:52 08/09/18 22:52 08/09/18 22:52 - Medications Medications: Current Medications Acetaminophen (Tylenol 325mg Tab) 650 mg PO Q6H PRN PRN Reason: Fever >100.4 F Carvedilol (Coreg) 3.125 mg PO BID [facility] Last Admin: 08/09/18 19:48 Dose: Not Given Digoxin (Digoxin) 0.125 mg PO 1400 [facility] Last Admin: 08/09/18 15:10 Dose: 0.125 mg Donepezil HCl (Aricept) 10 mg PO DAILY [facility] Last Admin: 08/09/18 09:23 Dose: 10 mg Enoxaparin Sodium (Lovenox) 30 mg SC DAILY [facility]; Protocol Last Admin: 08/09/18 09:22 Dose: 30 mg Furosemide (Lasix) 40 mg PO DAILY [facility] Last Admin: 08/09/18 09:22 Dose: 40 mg Lisinopril (Zestril) 20 mg PO DAILY [facility] Last Admin: 08/09/18 09:23 Dose: 20 mg Magnesium Oxide (Mag-Ox) 400 mg PO BID [facility] Last Admin: 08/09/18 19:48 Dose: Not Given Pantoprazole Sodium (Protonix Ec Tab) 40 mg PO DAILY [facility] Last Admin: 08/09/18 09:23 Dose: 40 mg Quetiapine Fumarate (Seroquel) 25 mg PO Q12 [facility]; Protocol Last Admin: 08/09/18 21:00 Dose: 25 mg Spironolactone (Aldactone) 25 mg PO DAILY [facility] Last Admin: 08/09/18 09:23 Dose: 25 mg - Labs Labs: 08/08/18 11:45 08/08/18 11:45 - Constitutional Appears: Non-toxic, No Acute Distress - Head Exam Head Exam: NORMAL INSPECTION, NORMOCEPHALIC - Eye Exam Eye Exam: Normal appearance Pupil Exam: NORMAL ACCOMODATION - ENT Exam ENT Exam: Mucous Membranes Moist, Normal Exam - Respiratory Exam Respiratory Exam: Decreased Breath Sounds, Clear to Ausculation Bilateral, NORMAL BREATHING PATTERN - Cardiovascular Exam Cardiovascular Exam: +S1, +S2 - GI/Abdominal Exam GI & Abdominal Exam: Soft, Normal Bowel Sounds - Extremities Exam Extremities Exam: Full ROM Additional comments: 1+edema - Neurological Exam Neurological Exam: Alert, Awake - Psychiatric Exam Psychiatric exam: Normal Affect, Normal Mood - Skin Skin Exam: Dry, Normal Color, Warm Assessment and Plan - Assessment and Plan (Free Text) Assessment: A 68 year old female who was brought to the ER due to altered metal status. Son was trying to help her and became combative. History of chronic systolic congestive heart failure,non-ischemic cardiomyopathy, LVEF 15-20%,hypertension, left breast cancer status post mastectomy with chemotherapy,vertigo,asthma, pneumonia, gout, former smoker, history of alcohol abuse,hysterectomy, right ankle fracture with surgery. cardiac cath at [facility] [place] 04[place], non obstructive coronary artery disease. Non compliant with medications. Denies shortness of breath. Denies chest pain. Chest X ray- no pulmonary vascular congestion. Clinically no signs of heart failure. Cardiac status stable. Admitted for urinary tract infection. started on Cipro.Seen by Dr. Gary-dementia with behavioral disturbance.Seen by Psychiatry-delirium and dementia. Started on Seroquel. No further cardiac work up at this time. Will have MUGA scan as out patient evaluate LVEF. [place] [facility] [place] ECHO done-LVEF 15-20% Four chamber dilatation mild AR, moderate to severe MR Moderate TR RVSP 72 mmHg Mild PVR, IVC dilated !08/13/17 Carotid Ultrasound Bilateral 20-39% proximal ICA stenosis Plan: Denies shortness of breath or chest pain Heart rate stable Blood pressure stable Cardiac status stable On Coreg 3.125 mg BID, Digoxin 0.125 mg daily, lovenox 30 mg daily, Lasix 40 mg daily, Lisinoril 20 mg daily, Aldactone 25 mg daily. Continue current treatment Continue current medications MUGA scan as out patient evaluate LVEF Neuro on consult Psych on consult Will follow up Plan and treatment discussed with Dr. Campbell
[2018-08-10 07:04] LABS: BASO # 0.01 K/mm3 (0.0-2.0); BASO % 0.1 % (0.0-3.0); EOS % 0.6 % (1.5-5.0); HEMOGLOBIN 12.9 g/dL (12.0-16.0); LYMPH # 1.1 (1.2-3.4); LYMPH % 15.3 % (22.0-35.0); MEAN CELL VOLUME 86.1 fl (80.0-105.0); MEAN CORPUSCULAR HGB CONC 32.5 g/dl (31.0-37.0); MEAN PLATELET VOLUME 9.8 fl (7.0-11.0); MONO # 0.7 (0.1-0.6); MONO % 9.7 % (1.0-6.0); RBC 4.61 10^6/uL (3.5-6.1); RED CELL DISTRIBUTION WIDTH 19.6 % (11.5-14.5)
--- NOTE | 2018-08-10 07:28 | CP.PCM.PN ---
<French Vyas - Last Filed: 08/10/18 12:28> Subjective - Date & Time of Evaluation Date of Evaluation: 08/10/18 Time of Evaluation: 07:22 - Subjective Subjective: PGY-2 medicine progress note for Dr Adhikari Overnight patient urinating on chair - needed 4 people to move back to bed. Seen by psychiatry yesterday. Seen with bedsheet over her head - refused to answer questions. ROS not obtainable. Objective - Vital Signs/Intake and Output Vital Signs (last 24 hours): Temp Pulse Resp BP Pulse Ox 98.4 F 70 20 144/80 97 08/09/18 22:52 08/09/18 22:52 08/09/18 22:52 08/09/18 22:52 08/09/18 22:52 - Medications Medications: Current Medications Acetaminophen (Tylenol 325mg Tab) 650 mg PO Q6H PRN PRN Reason: Fever >100.4 F Carvedilol (Coreg) 3.125 mg PO BID [facility] Last Admin: 08/09/18 19:48 Dose: Not Given Digoxin (Digoxin) 0.125 mg PO 1400 [facility] Last Admin: 08/09/18 15:10 Dose: 0.125 mg Donepezil HCl (Aricept) 10 mg PO DAILY [facility] Last Admin: 08/09/18 09:23 Dose: 10 mg Enoxaparin Sodium (Lovenox) 30 mg SC DAILY [facility]; Protocol Last Admin: 08/09/18 09:22 Dose: 30 mg Furosemide (Lasix) 40 mg PO DAILY [facility] Last Admin: 08/09/18 09:22 Dose: 40 mg Lisinopril (Zestril) 20 mg PO DAILY [facility] Last Admin: 08/09/18 09:23 Dose: 20 mg Magnesium Oxide (Mag-Ox) 400 mg PO BID [facility] Last Admin: 08/09/18 19:48 Dose: Not Given Pantoprazole Sodium (Protonix Ec Tab) 40 mg PO DAILY [facility] Last Admin: 08/09/18 09:23 Dose: 40 mg Quetiapine Fumarate (Seroquel) 25 mg PO Q12 [facility]; Protocol Last Admin: 08/09/18 21:00 Dose: 25 mg Spironolactone (Aldactone) 25 mg PO DAILY [facility] Last Admin: 08/09/18 09:23 Dose: 25 mg - Labs Labs: 08/10/18 06:15 08/08/18 11:45 - Additional Findings Additional findings: - Constitutional Appears: Well, Non-toxic, No Acute Distress, Unkempt - Head Exam Head Exam: ATRAUMATIC, NORMAL INSPECTION - Eye Exam Eye Exam: EOMI, Normal appearance, PERRL. absent: Scleral icterus - ENT Exam ENT Exam: Mucous Membranes Dry - Neck Exam Neck exam: Positive for: Normal Inspection - Respiratory Exam Respiratory Exam: Clear to Auscultation Bilateral, NORMAL BREATHING PATTERN. absent: Rales, Rhonchi, Wheezes - Cardiovascular Exam Cardiovascular Exam: REGULAR RHYTHM, +S1, +S2. absent: Tachycardia, JVD - GI/Abdominal Exam GI & Abdominal Exam: Normal Bowel Sounds, Soft. absent: Tenderness - Extremities Exam Extremities exam: Positive for: full ROM, normal capillary refill, pedal edema, pedal pulses present. Negative for: calf tenderness - Neurological Exam Neurological exam: Alert, Altered Additional comments: AAOx2 - Psychiatric Exam Psychiatric exam: Normal Affect Additional comments: disorganized thought process, confabulating, calm, no hallucinations - Skin Skin Exam: Dry, Intact, Normal Color, Warm Assessment and Plan - Assessment and Plan (Free Text) Plan: Mrs Pryor is a 68 year old female with a PMHx of systolic CHF, non-ischemic cardiomyopathy, HTN, breast cancer s/p breast mastectomy 2015 and s/p chemo 2011, vertigo, gout, cognitive impairment, medication non-compliance, who was brought in by family for altered mental status: #Altered Mental Status -likely 2/2 to dementia with psychosis; admission in 05/2018 for similar presentation and as per family patient's behavior has remained the same; r/o infectious causes; unlikely delirium -non-compliance with home meds -continue home meds aricept 10mg po qd, increased seroquel to 25mg po bid (previously 12.5mg po bid), geodon 10mg IM q12h prn (started 08/10) -UA positive for 5-10 wbc's, blood cx negative up to date, f/u urine cx, cxr no active disease, drug screen negative -consulted psychiatrist, Dr Lopez * agrees with seroquel, recommend not using haldol and instead using geodon IM prn for agitation -consulted neurologist, Dr Gary * recommended to increase seroquel dose -CT head w/o contrast: * No intracranial mass, hemorrhage or evidence of acute infarct. Mild age related atrophy and chronic white matter ischemic change. No change from 06/11/2018. #Systolic CHF #Non-ischemic Cardiomyopathy -not currently in acute heart failure -echo 05/2018 showed 4 chamber dilation with EF 15-20%, moderate to severe pulmonary HTN (see full report) -ekg showed normal rate and nsr without t wave or st changes; possible left atrial enlargement and right ventricle conductions delay; left axis deviation -patient follows-up with sound ranging crewmember from [facility] -recent cardiac cath in 02/2018 at [facility] [place] showed non-obstructive coronary artery disease with low EF -non-compliance with home meds -continue home meds coreg 3.125mg po bid, digoxin 0.125mg po qd, lasix 40mg po qd, lisinopril 20mg po qd, spiranolactone 25mg po qd -strict Is/Os, daily weight, head of bed at 30 degrees -consult cardiology, Dr Campbell #HTN -BP currently well controlled -continue home meds coreg 3.125mg po bid, lasix 40mg po qd, lisinopril 20mg po qd, spiranolactone 25mg po qd #PPX -scd's, lovenox 30mg sc qd -protonix 40mg po qd -heart healthy diet Dispo: Patient's daughter states family rotates taking care of patient however having difficulty doing this. Patient's daughter would like to know options for skilled nursing placement. Case discussed with Dr Adhikari <Fortino Adhikari S - Last Filed: 08/11/18 16:34> Objective - Vital Signs/Intake and Output Vital Signs (last 24 hours): Temp Pulse Resp BP Pulse Ox 97.5 F L 87 18 125/88 97 08/11/18 06:00 08/11/18 09:22 08/11/18 06:00 08/11/18 09:22 08/11/18 06:00 Intake and Output: 08/11/18 08/11/18 06:59 18:59 Intake Total 360 Balance 360 - Medications Medications: Current Medications Acetaminophen (Tylenol 325mg Tab) 650 mg PO Q6H PRN PRN Reason: Fever >100.4 F Carvedilol (Coreg) 3.125 mg PO BID [facility] Last Admin: 08/11/18 09:22 Dose: 3.125 mg Digoxin (Digoxin) 0.125 mg PO 1400 [facility] Last Admin: 08/11/18 16:07 Dose: 0.125 mg Donepezil HCl (Aricept) 10 mg PO DAILY [facility] Last Admin: 08/11/18 09:24 Dose: 10 mg Enoxaparin Sodium (Lovenox) 30 mg SC DAILY [facility]; Protocol Last Admin: 08/11/18 09:22 Dose: 30 mg Furosemide (Lasix) 40 mg PO DAILY [facility] Last Admin: 08/11/18 09:21 Dose: 40 mg Lisinopril (Zestril) 20 mg PO DAILY [facility] Last Admin: 08/11/18 09:20 Dose: 20 mg Magnesium Oxide (Mag-Ox) 400 mg PO BID [facility] Last Admin: 08/11/18 09:22 Dose: 400 mg Pantoprazole Sodium (Protonix Ec Tab) 40 mg PO DAILY [facility] Last Admin: 08/11/18 09:21 Dose: 40 mg Quetiapine Fumarate (Seroquel) 25 mg PO Q12 [facility]; Protocol Last Admin: 08/11/18 09:21 Dose: 25 mg Spironolactone (Aldactone) 25 mg PO DAILY [facility] Last Admin: 08/11/18 09:21 Dose: 25 mg - Labs Labs: 08/11/18 06:40 08/11/18 06:40 Assessment and Plan - Assessment and Plan (Free Text) Plan: Pt seen and examined by me. I have reviewed the note of the medical claims manager and I agree with it. I have discussed the assessment and plan with the resident. I have reviewed the medications and the last labs.Pt with Dementia. BP is controlled with Lisinopril. She has a cardiomyopathy and is on Lasix and Dig, as well as Coreg. She has Dementia- Alzh type and it is stable. Eating ok. Spoke to son at bedside.
[2018-08-10 09:02] VITALS: RESP 18
[2018-08-10 09:09] LABS: ALBUMIN 3.8 g/dL (3.0-4.8); ALT/SGPT 8 U/L (7-56); AST/SGOT 20 U/L (14-36); BLOOD UREA NITROGEN 14 mg/dL (7-21); CALCIUM 9.4 mg/dL (8.4-10.5); GFR NON-AFRICAN AMERICAN > 60; HDL CHOLESTEROL 36 mg/dL (29-60)
[2018-08-10 09:16] LABS: LDL CHOLESTEROL 128 mg/dL (0-129)
[2018-08-10] MEDS: Pantoprazole 40 mg EC Tab PO SCH (10:39)
[2018-08-10] MEDS: Enoxaparin 30 mg Syringe SC SCH (10:39)
[2018-08-10] MEDS: Magnesium Oxide 400 mg Tab UD PO SCH ×2 (10:40→18:05)
[2018-08-10] MEDS: Digoxin 125 mcg (0.125 mg) Tab PO SCH (14:08)
--- NOTE | 2018-08-11 07:03 | CP.PCM.PN ---
Subjective - Date & Time of Evaluation Date of Evaluation: 08/11/18 Time of Evaluation: 06:30 - Subjective Subjective: Awake, alert, feels okay, lying in bed Reason for consultation and follow up: Cardiac evaluation of non ischemic cardiomyopathy, admitted for altered mental status,History of chronic systolic congestive heart failure,non-ischemic cardiomyopathy, hypertension, Seen and examined by me and Dr. Campbell Objective - Vital Signs/Intake and Output Vital Signs (last 24 hours): Temp Pulse Resp BP Pulse Ox 97.3 F L 90 18 142/103 H 96 08/10/18 21:57 08/10/18 21:57 08/10/18 21:57 08/10/18 21:57 08/10/18 21:57 Intake and Output: 08/11/18 08/11/18 06:59 18:59 Intake Total 360 Balance 360 - Medications Medications: Current Medications Acetaminophen (Tylenol 325mg Tab) 650 mg PO Q6H PRN PRN Reason: Fever >100.4 F Carvedilol (Coreg) 3.125 mg PO BID [facility] Last Admin: 08/10/18 18:05 Dose: 3.125 mg Digoxin (Digoxin) 0.125 mg PO 1400 [facility] Last Admin: 08/10/18 14:08 Dose: 0.125 mg Donepezil HCl (Aricept) 10 mg PO DAILY [facility] Last Admin: 08/10/18 10:40 Dose: 10 mg Enoxaparin Sodium (Lovenox) 30 mg SC DAILY [facility]; Protocol Last Admin: 08/10/18 10:39 Dose: 30 mg Furosemide (Lasix) 40 mg PO DAILY [facility] Last Admin: 08/10/18 10:41 Dose: 40 mg Lisinopril (Zestril) 20 mg PO DAILY [facility] Last Admin: 08/10/18 10:40 Dose: 20 mg Magnesium Oxide (Mag-Ox) 400 mg PO BID [facility] Last Admin: 08/10/18 18:05 Dose: 400 mg Pantoprazole Sodium (Protonix Ec Tab) 40 mg PO DAILY [facility] Last Admin: 08/10/18 10:39 Dose: 40 mg Quetiapine Fumarate (Seroquel) 25 mg PO Q12 [facility]; Protocol Last Admin: 08/10/18 21:28 Dose: 25 mg Spironolactone (Aldactone) 25 mg PO DAILY [facility] Last Admin: 08/10/18 10:40 Dose: 25 mg Ziprasidone (Geodon Inj) 10 mg IM Q12H PRN; Protocol PRN Reason: Agitation - Labs Labs: 08/10/18 06:15 08/10/18 06:15 - Constitutional Appears: Non-toxic, No Acute Distress - Head Exam Head Exam: NORMAL INSPECTION, NORMOCEPHALIC - Eye Exam Eye Exam: Normal appearance Pupil Exam: NORMAL ACCOMODATION - ENT Exam ENT Exam: Mucous Membranes Moist, Normal Exam - Respiratory Exam Respiratory Exam: Clear to Ausculation Bilateral, NORMAL BREATHING PATTERN - Cardiovascular Exam Cardiovascular Exam: +S1, +S2 - GI/Abdominal Exam GI & Abdominal Exam: Soft, Normal Bowel Sounds - Extremities Exam Extremities Exam: Full ROM, Normal Capillary Refill - Neurological Exam Neurological Exam: Alert, Awake - Psychiatric Exam Psychiatric exam: Normal Affect, Normal Mood - Skin Skin Exam: Dry, Normal Color, Warm Assessment and Plan - Assessment and Plan (Free Text) Assessment: A 68 year old female who was brought to the ER due to altered metal status. Son was trying to help her and became combative. History of chronic systolic congestive heart failure,non-ischemic cardiomyopathy, LVEF 15-20%,hypertension, left breast cancer status post mastectomy with chemotherapy,vertigo,asthma, pneumonia, gout, former smoker, history of alcohol abuse,hysterectomy, right ankle fracture with surgery. [place] [facility] [place], non obstructive co ronary artery disease. Non compliant with medications. Denies shortness of breath. Denies chest pain. Chest X ray- no pulmonary vascular congestion.06/12/18 ECHO showed LVEF 15-20%, Four chamber dilatation, mild AR, moderate to severe MR, Moderate TR RVSP 72 mmHg, Mild PVR, IVC dilated. Clinically no signs of heart failure. Cardiac status stable. Admitted for urinary tract infection. started on Cipro.Seen by Dr. Gary-dementia with behavioral disturbance.Seen by Psychiatry-delirium and dementia. Started on Seroquel. No further cardiac work up at this time. Will have MUGA scan as out patient evaluate LVEF.Discharge planning. Plan: Cardiac status stable Denies shortness of breath or chest pain Awake but confuse Heart rate stable Blood pressure stable On Coreg 3.125 mg BID, Digoxin 0.125 mg daily, lovenox 30 mg daily, Lasix 40 mg daily, Lisinoril 20 mg daily, Aldactone 25 mg daily. Continue current treatment Continue current medications Neuro on consult Psych on consult Discharge planning Will follow up Plan and treatment discussed with Dr. Campbell
[2018-08-11 07:09] LABS: BASO # 0.02 K/mm3 (0.0-2.0); BASO % 0.3 % (0.0-3.0); EOS # 0.1 (0.0-0.7); EOS % 1.3 % (1.5-5.0); HEMOGLOBIN 11.7 g/dL (12.0-16.0); LYMPH # 1.4 (1.2-3.4); LYMPH % 18.8 % (22.0-35.0); MEAN CELL VOLUME 85.3 fl (80.0-105.0); MEAN CORPUSCULAR HEMOGLOBIN 27.7 pg (25.0-35.0); MEAN CORPUSCULAR HGB CONC 32.4 g/dl (31.0-37.0); MEAN PLATELET VOLUME 9.7 fl (7.0-11.0); MONO % 13.5 % (1.0-6.0); RBC 4.23 10^6/uL (3.5-6.1); RED CELL DISTRIBUTION WIDTH 19.4 % (11.5-14.5); WHITE BLOOD COUNT 7.2 10^3/uL (4.5-11.0)
[2018-08-11 07:49] LABS: ALB/GLOB RATIO 0.9 (1.1-1.8); ALBUMIN 3.2 g/dL (3.0-4.8); ALT/SGPT 9 U/L (7-56); AST/SGOT 18 U/L (14-36); BLOOD UREA NITROGEN 11 mg/dL (7-21); CALCIUM 8.8 mg/dL (8.4-10.5); GFR NON-AFRICAN AMERICAN > 60
[2018-08-11] MEDS: Pantoprazole 40 mg EC Tab PO SCH (09:21)
[2018-08-11] MEDS: Enoxaparin 30 mg Syringe SC SCH (09:22)
[2018-08-11] MEDS: Magnesium Oxide 400 mg Tab UD PO SCH ×2 (09:22→17:57)
--- NOTE | 2018-08-11 13:23 | CP.PCM.PN ---
<French Vyas - Last Filed: 08/11/18 13:21> Subjective - Date & Time of Evaluation Date of Evaluation: 08/11/18 Time of Evaluation: 13:21 - Subjective Subjective: PGY-2 medicine progress note for Dr Adhikari No behavioral issues overnight - patient has not required any geodon for agitation and is now allowing bloodwork and medications. Seen by psychiatry on 08/09. Denied being in any pain or discomfort. AAOx1. Still has confabulations. Objective - Vital Signs/Intake and Output Vital Signs (last 24 hours): Temp Pulse Resp BP Pulse Ox 97.5 F L 87 18 125/88 97 08/11/18 06:00 08/11/18 09:22 08/11/18 06:00 08/11/18 09:22 08/11/18 06:00 Intake and Output: 08/11/18 08/11/18 06:59 18:59 Intake Total 360 Balance 360 - Medications Medications: Current Medications Acetaminophen (Tylenol 325mg Tab) 650 mg PO Q6H PRN PRN Reason: Fever >100.4 F Carvedilol (Coreg) 3.125 mg PO BID [facility] Last Admin: 08/11/18 09:22 Dose: 3.125 mg Digoxin (Digoxin) 0.125 mg PO 1400 [facility] Last Admin: 08/10/18 14:08 Dose: 0.125 mg Donepezil HCl (Aricept) 10 mg PO DAILY [facility] Last Admin: 08/11/18 09:24 Dose: 10 mg Enoxaparin Sodium (Lovenox) 30 mg SC DAILY [facility]; Protocol Last Admin: 08/11/18 09:22 Dose: 30 mg Furosemide (Lasix) 40 mg PO DAILY [facility] Last Admin: 08/11/18 09:21 Dose: 40 mg Lisinopril (Zestril) 20 mg PO DAILY [facility] Last Admin: 08/11/18 09:20 Dose: 20 mg Magnesium Oxide (Mag-Ox) 400 mg PO BID [facility] Last Admin: 08/11/18 09:22 Dose: 400 mg Pantoprazole Sodium (Protonix Ec Tab) 40 mg PO DAILY [facility] Last Admin: 08/11/18 09:21 Dose: 40 mg Quetiapine Fumarate (Seroquel) 25 mg PO Q12 [facility]; Protocol Last Admin: 08/11/18 09:21 Dose: 25 mg Spironolactone (Aldactone) 25 mg PO DAILY [facility] Last Admin: 08/11/18 09:21 Dose: 25 mg - Labs Labs: 08/11/18 06:40 08/11/18 06:40 - Additional Findings Additional findings: - Constitutional Appears: Well, Non-toxic, No Acute Distress, Unkempt - Head Exam Head Exam: ATRAUMATIC, NORMAL INSPECTION - Eye Exam Eye Exam: EOMI, Normal appearance, PERRL. absent: Scleral icterus - ENT Exam ENT Exam: Mucous Membranes Dry - Neck Exam Neck exam: Positive for: Normal Inspection - Respiratory Exam Respiratory Exam: Clear to Auscultation Bilateral, NORMAL BREATHING PATTERN. absent: Rales, Rhonchi, Wheezes - Cardiovascular Exam Cardiovascular Exam: REGULAR RHYTHM, +S1, +S2. absent: Tachycardia, JVD - GI/Abdominal Exam GI & Abdominal Exam: Normal Bowel Sounds, Soft. absent: Tenderness - Extremities Exam Extremities exam: Positive for: full ROM, normal capillary refill, pedal edema, pedal pulses present. Negative for: calf tenderness - Neurological Exam Neurological exam: Alert, Altered Additional comments: AAOx1 - Psychiatric Exam Psychiatric exam: Normal Affect Additional comments: disorganized thought process, confabulating, calm, no hallucinations - Skin Skin Exam: Dry, Intact, Normal Color, Warm Assessment and Plan - Assessment and Plan (Free Text) Plan: Mrs Pryor is a 68 year old female with a PMHx of systolic CHF, non-ischemic cardiomyopathy, HTN, breast cancer s/p breast mastectomy 2015 and s/p chemo 2011, vertigo, gout, cognitive impairment, medication non-compliance, who was brought in by family for altered mental status: #Altered Mental Status -likely 2/2 to dementia with psychosis; admission in 05/2018 for similar presentation and as per family patient's behavior has remained the same; r/o infectious causes; unlikely delirium -non-compliance with home meds -continue home meds aricept 10mg po qd, increased seroquel to 25mg po bid (previously 12.5mg po bid), geodon 10mg IM q12h prn (started 08/10) -UA positive for 5-10 wbc's, blood cx negative up to date, f/u urine cx, cxr no active disease, drug screen negative -consulted psychiatrist, Dr Lopez * agrees with seroquel, recommend not using haldol and instead using geodon IM prn for agitation -consulted neurologist, Dr Gary * recommended to increase seroquel dose -CT head w/o contrast: * No intracranial mass, hemorrhage or evidence of acute infarct. Mild age related atrophy and chronic white matter ischemic change. No change from 06/11/2018. #Systolic CHF #Non-ischemic Cardiomyopathy -not currently in acute heart failure -echo 05/2018 showed 4 chamber dilation with EF 15-20%, moderate to severe pulmonary HTN (see full report) -ekg showed normal rate and nsr without t wave or st changes; possible left atrial enlargement and right ventricle conductions delay; left axis deviation -patient follows-up with dermatologist managing partner from [facility] -[place] [facility] [place] showed non-obstructive coronary artery disease with low EF -non-compliance with home meds -continue home meds coreg 3.125mg po bid, digoxin 0.125mg po qd, lasix 40mg po qd, lisinopril 20mg po qd, spiranolactone 25mg po qd -strict Is/Os, daily weight, head of bed at 30 degrees -consult cardiology, Dr Campbell #HTN -BP currently well controlled -continue home meds coreg 3.125mg po bid, lasix 40mg po qd, lisinopril 20mg po qd, spiranolactone 25mg po qd #PPX -scd's, lovenox 30mg sc qd -protonix 40mg po qd -heart healthy diet Dispo: Patient's daughter states family rotates taking care of patient however having difficulty doing this. Patient's daughter would like to know options for jail placement - she is to come to [facility] today 08/11 at 2:30pm to have discussion with employment evaluator/case manager/social work. Case discussed with Dr Adhikari <Fortino Adhikari S - Last Filed: 08/11/18 16:32> Objective - Vital Signs/Intake and Output Vital Signs (last 24 hours): Temp Pulse Resp BP Pulse Ox 97.5 F L 87 18 125/88 97 08/11/18 06:00 08/11/18 09:22 08/11/18 06:00 08/11/18 09:22 08/11/18 06:00 Intake and Output: 08/11/18 08/11/18 06:59 18:59 Intake Total 360 Balance 360 - Medications Medications: Current Medications Acetaminophen (Tylenol 325mg Tab) 650 mg PO Q6H PRN PRN Reason: Fever >100.4 F Carvedilol (Coreg) 3.125 mg PO BID [facility] Last Admin: 08/11/18 09:22 Dose: 3.125 mg Digoxin (Digoxin) 0.125 mg PO 1400 [facility] Last Admin: 08/11/18 16:07 Dose: 0.125 mg Donepezil HCl (Aricept) 10 mg PO DAILY [facility] Last Admin: 08/11/18 09:24 Dose: 10 mg Enoxaparin Sodium (Lovenox) 30 mg SC DAILY [facility]; Protocol Last Admin: 08/11/18 09:22 Dose: 30 mg Furosemide (Lasix) 40 mg PO DAILY [facility] Last Admin: 08/11/18 09:21 Dose: 40 mg Lisinopril (Zestril) 20 mg PO DAILY [facility] Last Admin: 08/11/18 09:20 Dose: 20 mg Magnesium Oxide (Mag-Ox) 400 mg PO BID [facility] Last Admin: 08/11/18 09:22 Dose: 400 mg Pantoprazole Sodium (Protonix Ec Tab) 40 mg PO DAILY [facility] Last Admin: 08/11/18 09:21 Dose: 40 mg Quetiapine Fumarate (Seroquel) 25 mg PO Q12 [facility]; Protocol Last Admin: 08/11/18 09:21 Dose: 25 mg Spironolactone (Aldactone) 25 mg PO DAILY [facility] Last Admin: 08/11/18 09:21 Dose: 25 mg - Labs Labs: 08/11/18 06:40 08/11/18 06:40 Assessment and Plan - Assessment and Plan (Free Text) Plan: Pt seen and examined by me. I have reviewed the note of the dental assistant medical assistant and I agree with it. I have discussed the assessment and plan with the resident. I have reviewed the medications and the last labs.Pt with Dementia- Alz. She had delrium that has improved. 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 Pt with cardiomyopathy stable nonischemic. She will be going home today. I spoke to SW and tie worker. She will continue [facility] Aldactone and Lisinopril.
[2018-08-11] MEDS: Digoxin 125 mcg (0.125 mg) Tab PO SCH ×2 (14:55→16:07)
[2018-08-11 16:10] VITALS: PULSE 92
[2018-08-11] MEDS ORDERED: Potassium Chloride 20 mEq ER Tab PO ONE (16:23)
[2018-08-12 06:55] LABS: ALB/GLOB RATIO 0.9 (1.1-1.8); ALBUMIN 2.8 g/dL (3.0-4.8); ALT/SGPT 14 U/L (7-56); AST/SGOT 19 U/L (14-36); BLOOD UREA NITROGEN 11 mg/dL (7-21); CALCIUM 8.5 mg/dL (8.4-10.5); GFR NON-AFRICAN AMERICAN > 60
--- NOTE | 2018-08-12 07:12 | CP.PCM.PN ---
Subjective - Date & Time of Evaluation Date of Evaluation: 08/12/18 Time of Evaluation: 06:45 - Subjective Subjective: Lying in bed, Awake, alert Reason for consultation and follow up: Cardiac evaluation of non ischemic cardiomyopathy, admitted for altered mental status,History of chronic systolic congestive heart failure,non-ischemic cardiomyopathy, hypertension, Seen and examined by me and Dr. Campbell Objective - Vital Signs/Intake and Output Vital Signs (last 24 hours): Temp Pulse Resp BP Pulse Ox 97 F L 88 18 105/68 94 L 08/11/18 22:00 08/11/18 22:00 08/11/18 22:00 08/11/18 22:00 08/11/18 22:00 - Medications Medications: Current Medications Acetaminophen (Tylenol 325mg Tab) 650 mg PO Q6H PRN PRN Reason: Fever >100.4 F Carvedilol (Coreg) 3.125 mg PO BID [facility] Last Admin: 08/11/18 17:58 Dose: Not Given Digoxin (Digoxin) 0.125 mg PO 1400 [facility] Last Admin: 08/11/18 16:07 Dose: 0.125 mg Donepezil HCl (Aricept) 10 mg PO DAILY [facility] Last Admin: 08/11/18 09:24 Dose: 10 mg Enoxaparin Sodium (Lovenox) 30 mg SC DAILY [facility]; Protocol Last Admin: 08/11/18 09:22 Dose: 30 mg Furosemide (Lasix) 40 mg PO DAILY [facility] Last Admin: 08/11/18 09:21 Dose: 40 mg Lisinopril (Zestril) 20 mg PO DAILY [facility] Last Admin: 08/11/18 09:20 Dose: 20 mg Magnesium Oxide (Mag-Ox) 400 mg PO BID [facility] Last Admin: 08/11/18 17:57 Dose: Not Given Pantoprazole Sodium (Protonix Ec Tab) 40 mg PO DAILY [facility] Last Admin: 08/11/18 09:21 Dose: 40 mg Quetiapine Fumarate (Seroquel) 25 mg PO Q12 [facility]; Protocol Last Admin: 08/11/18 21:42 Dose: 25 mg Spironolactone (Aldactone) 25 mg PO DAILY [facility] Last Admin: 08/11/18 09:21 Dose: 25 mg - Labs Labs: 08/11/18 06:40 08/12/18 06:00 - Constitutional Appears: Non-toxic, No Acute Distress - Head Exam Head Exam: NORMAL INSPECTION, NORMOCEPHALIC - Eye Exam Eye Exam: Normal appearance Pupil Exam: NORMAL ACCOMODATION - ENT Exam ENT Exam: Mucous Membranes Moist - Respiratory Exam Respiratory Exam: Clear to Ausculation Bilateral, NORMAL BREATHING PATTERN - Cardiovascular Exam Cardiovascular Exam: +S1, +S2 - GI/Abdominal Exam GI & Abdominal Exam: Soft, Normal Bowel Sounds - Extremities Exam Extremities Exam: Full ROM - Neurological Exam Neurological Exam: Alert, Awake Additional comments: confuse - Skin Skin Exam: Dry, Normal Color, Warm Assessment and Plan - Assessment and Plan (Free Text) Assessment: A 68 year old female who was brought to the ER due to altered metal status. Son was trying to help her and became combative. History of chronic systolic conges tive heart failure,non-ischemic cardiomyopathy, LVEF 15-20%,hypertension, left breast cancer status post mastectomy with chemotherapy,vertigo,asthma, pneumonia, gout, former smoker, history of alcohol abuse,hysterectomy, right ankle fracture with surgery. [place] [facility] [place], non obstructive coronary artery disease. Non compliant with medications. Denies shortness of breath. Denies chest pain. Chest X ray- no pulmonary vascular congestion.06/12/18 ECHO showed LVEF 15-20%, Four chamber dilatation, mild AR, moderate to severe MR, Moderate TR RVSP 72 mmHg, Mild PVR, IVC dilated. C linically no signs of heart failure. Cardiac status stable. Admitted for urinary tract infection. started on Cipro.Seen by Dr. Gary-dementia with behavioral disturbance.Seen by Psychiatry-delirium and dementia. Started on Seroquel. No further cardiac work up at this time. Will have MUGA scan as out patient evaluate LVEF. Cardiac status stable. Discharge planning. Plan: Denies shortness of breath or chest pain Awake but confuse Cardiac status stable Heart rate stable Blood pressure stable On Coreg 3.125 mg BID, Digoxin 0.125 mg daily, lovenox 30 mg daily, Lasix 40 mg daily, Lisinoril 20 mg daily, Aldactone 25 mg daily. Continue current treatment Continue current medications Neuro on consult Psych on consult Discharge planning Will follow up Plan and treatment discussed with Dr. Campbell
[2018-08-12 07:25] LABS: BASO # 0.02 K/mm3 (0.0-2.0); BASO % 0.2 % (0.0-3.0); EOS # 0.2 (0.0-0.7); EOS % 2.2 % (1.5-5.0); HEMOGLOBIN 11.6 g/dL (12.0-16.0); LYMPH # 1.6 (1.2-3.4); LYMPH % 18.9 % (22.0-35.0); MEAN CELL VOLUME 85.7 fl (80.0-105.0); MEAN CORPUSCULAR HGB CONC 32.7 g/dl (31.0-37.0); MEAN PLATELET VOLUME 9.8 fl (7.0-11.0); MONO % 12.7 % (1.0-6.0); RBC 4.14 10^6/uL (3.5-6.1); RED CELL DISTRIBUTION WIDTH 18.9 % (11.5-14.5); WHITE BLOOD COUNT 8.2 10^3/uL (4.5-11.0)
[2018-08-12 07:34] VITALS: BP 118/76; PULSE 87; TEMP 97.7; O2SAT 95
[2018-08-12] MEDS: Pantoprazole 40 mg EC Tab PO SCH (09:45)
[2018-08-12] MEDS: Magnesium Oxide 400 mg Tab UD PO SCH (09:45)
[2018-08-12] MEDS: Enoxaparin 30 mg Syringe SC SCH (09:46)
[2018-08-12] MEDS ORDERED: Potassium Chloride 20 mEq ER Tab PO ONE (11:59)
--- NOTE | 2018-08-13 02:18 | DS ---
HISTORY OF PRESENT ILLNESS: This is a 68-year-old female who came into the hospital because of delirium. The patient has improved in her symptoms. She has had underlying dementia, it has becoming harder for the patient's family to take care of the patient. They have plans to fill out Medicaid applications and work on getting her to a long-term care facilities as an outpatient. She was discharged yesterday, but the patient's granddaughter did not take the patient home. There were multiple calls that were made to the patient's family and no response to take the patient home. The patient was seen by Dr. Lopez, Psychiatry. She has no complaints. She is currently comfortable. She has no complaints of any headaches or dizziness. No nausea. No vomiting. She is eating well. PHYSICAL EXAMINATION: GENERAL: The patient lying in bed, uncomfortable, and in no acute distress. VITAL SIGNS: Temperature 97.7, pulse 87, blood pressure 118/76, and respirations 18. HEENT: No oral lesion. Anicteric sclerae. Moist mucosa. NECK: No JVD, adenopathy, or thyromegaly. CARDIOVASCULAR: S1 and S2, regular. No murmurs, rubs, or gallops. LUNGS: Clear to auscultation bilaterally. No wheeze, rales, or rhonchi. ABDOMEN: Bowel sounds are positive, soft, nontender and nondistended. EXTREMITIES: No cyanosis, clubbing or edema. ASSESSMENT: 1. Delirium, resolved. 2. Nonischemic cardiomyopathy with systolic dysfunction, congestive heart failure, stable. 3. Hypertension. 4. Dementia, Alzheimer's type. PLAN: The patient is currently on Aldactone for the CHF. She is going to continue Aricept for the dementia. The patient is on Lasix daily. She is on Lovenox for DVT prophylaxis, although she is walking, at this point, I will discontinue the Lovenox. The patient is receiving Seroquel. She is comfortable. She is going to be discharge home today. CONDITION: Stable. ACTIVITIES: Increase as tolerated. Fortino Adhikari MD
== END 2018-08-12 14:41 | disposition home or self-care (01) | DRG 57 ==
LOC: ED 11:02 → ERH 14:43 → 5RNO 21:13
PROVIDERS: ADMIT Internal Medicine Nephrology; ATTEND Internal Medicine Nephrology
DX: G30.9 Alzheimer's disease, unspecified (principal); F02.81 Dementia in other diseases classified elsewhere, unspecified severity, with behavioral disturbance; I50.22 Chronic systolic (congestive) heart failure; I42.9 Cardiomyopathy, unspecified; N39.0 Urinary tract infection, site not specified; I11.0 Hypertensive heart disease with heart failure; I65.23 Occlusion and stenosis of bilateral carotid arteries; J45.909 Unspecified asthma, uncomplicated; I27.20 Pulmonary hypertension, unspecified; I25.10 Atherosclerotic heart disease of native coronary artery without angina pectoris; M10.9 Gout, unspecified; R41.82 Altered mental status, unspecified; R44.1 Visual hallucinations; Z85.3 Personal history of malignant neoplasm of breast; Z92.21 Personal history of antineoplastic chemotherapy; Z79.899 Other long term (current) drug therapy; Z87.891 Personal history of nicotine dependence; Z91.14 Patient's other noncompliance with medication regimen; Z90.12 Acquired absence of left breast and nipple; Z88.0 Allergy status to penicillin